=== PATIENT | male | born 1970 | race Caucasian/White ===

== ENCOUNTER → 2017-12-04 07:15 | Outpatient (CLI) | payer OTHER, MEDICAID, SELFPAY ==
[2017-12-04 09:04] LABS: Alanine Aminotransferase 24 IU/L (21-72); Albumin 4.6 g/dL (3.5-5.0); Albumin Globulin Ratio 1.6 (1.0-2.8); Alkaline Phosphatase 42 U/L (38-126); Aspartate Aminotransferase 23 IU/L (17-59); Blood Urea Nitrogen 16 mg/dL (9-20); Calcium 9.8 mg/dL (8.4-10.2); Carbon Dioxide 31 mmol/L (22-32); Chloride 100 mmol/L (98-107); Cholesterol 219 mg/dL (140-199); Estimated Glomerular Filt Rate > 60.0 mL/min (>60); Globulin 2.9 g/dL (1.7-4.1); Glucose 84 mg/dL (70-100); HDL Cholesterol 55 mg/dL (40-60); HEMOLYSIS < 15 (0-50); LDL Cholesterol Calculated 152 mg/dL (<100); Potassium 5.3 mmol/L (3.4-5.1); Sodium 143 mmol/L (137-145); Total Protein 7.5 g/dL (6.3-8.2); Triglycerides 60 mg/dL (35-150)
== END ==
PROVIDERS: PCP Family Medicine; Visit Provider Family Medicine
DX: Z00.00 Encounter for general adult medical examination without abnormal findings (principal)
CPT/HCPCS: 36415; 80053; 80061

== ENCOUNTER 2018-04-08 09:00 | Outpatient (RCR) | payer OTHER, MEDICAID, SELFPAY ==
--- NOTE | 2017-12-17 17:30 | PT.OIE ---
Current Diagnoses Low back pain (12/17/17) Past Medical History (Last Reviewed 12/10/17 @ 10:39 by Sima Becerra LPN) Foot pain (Chronic ~2014) Provider Visit Care Team Role Provider Type Jonathon Wasserman MD Attending Provider Physician Family Provider Primary Care Provider Specialty: Family Practice Address: [address] [place] [address] Email: [email or web address] Physical Therapy Initial Evaluation PT-OP-A Visit Information Start: 12/17/17 13:17 Freq: Status: Active Protocol: Document 12/17/17 13:21 EA (Rec: 12/17/17 13:40 EA [id number]) Out-Patient Physical Therapy Visit Information Visit Information Visit Type Initial Evaluation Visit Start Time 07:30 Visit Stop Time 08:00 Total Visit Minutes 30 Visit Number 1 Evaluation Information Evaluation Date 12/17/17 PT-OP-B Current Condition Start: 12/17/17 13:17 Freq: Status: Active Protocol: Document 12/17/17 13:21 EA (Rec: 12/17/17 13:40 EA [id number]) Current Condition History of Current Condition Onset Date 4 years ago Current Complaints Localized R low back and posterior neck aching pain. History of Current Condition Pt reports chronic low back pain for more than ten years and neck pain started ~ 3 months ago. Pt denies any low back and neck surgery or injury or other significant history. Pt reports his works requires sitting in the computer longer time with monitor position slightly angulated to right side; states does 3-4 times yoga, hiking, out walking; states does reading with two pillows. Pt denies abnormal sensation to both UE/LE's; denies los of function to both UE/LE's Prior Treatments and Tests Sciatic n. treatment to PT with good results Future Testing and Treatments Planned None identified. Treatment Goals Patient/Caregiver Goals Patient wants to get rid of neck and low back pain Prior Functional Status Baseline Function- ADL's Independent Baseline Function- Mobility Independent Baseline Function- Recreation/Hobbies Hiking, Yoga, out side walking with no back and neck symptoms Current Functional Impairments (Reported) Functional Limitations- ADL's Independent Functional Limitations- Mobility/Gait Slight difficulty with long distance hike due to minimal low back and neck pain PT-OP-C Subjective Start: 12/17/17 13:17 Freq: Status: Active Protocol: Document 12/17/17 13:21 EA (Rec: 12/17/17 13:40 EA [id number]) OP-PT Subjective Patient Comments Patient Comments Patient would like to eliminate right low back and posterior neck pain Patient Reported Progress Same Patient Questionnaires Oswestry Low Back Index Oswestry Score 11 Oswestry Impairment 1 to 19% Impaired (Score 1-19) Other Questionnaire Name and Score Neck disability index to fill up next visit OP-PT Pain Assessment Pain Assessment Grid Paper Pain Assessment Grid Completed Yes Location Right Lower Medial Back Pain Location Details 4 Scale Used Numeric (1 - 10) Description Aching Tightness With Movement Frequency Intermittent Pain Aggravating Factors Position Sitting Bending Lifting Pain Alleviating Factors Exercise Patient Stated Pain Goal 0 Home Pain Medication Use Pain Medications Used No Comments Pain Comments No acute distress; ambulate with near normal pelvic swing PT-OP-F Manual Assessment Start: 12/17/17 13:17 Freq: Status: Active Protocol: Document 12/17/17 13:21 EA (Rec: 12/17/17 13:40 EA [id number]) Manual Assessments Soft Tissue Assessment Soft Tissue Mobility Assessment Tigthness to both Posterior neck, SCM, Shoulder IR, protratctors, QL, paralumbars PT-OP-G Mobility & Gait Start: 12/17/17 13:17 Freq: Status: Active Protocol: Document 12/17/17 13:21 EA (Rec: 12/17/17 13:40 EA [id number]) OP Gait Assessment Gait Gait Assistance Required: Independent Comments Gait Comments Normal gait pattern PT-OP-J Posture/Palpation/Skin Start: 12/17/17 13:17 Freq: Status: Active Protocol: Document 12/17/17 13:21 EA (Rec: 12/17/17 13:40 EA [id number]) Posture Evaluation Position Standing Evaluation View Annt/Lat Head/C-Spine Posture Flexed Forward Head T-Spine Posture Neutral L-Spine Posture Flattened Shoulder Posture (L) Rounded (R) Rounded Scapula Posture (L) Protracted (R) Protracted Arm Posture (L) Internally Rotated (R) Internally Rotated Pelvis Posture Posterior Tilted Palpation Assessment Location One Palpation Findings Soft Tissue Tightness Tenderness Palpation Details Grade 1/4 tender over L1-L2 paraspinals, post neck muscles , SCM PT-OP-K Range of Motion Start: 12/17/17 13:17 Freq: Status: Active Protocol: Document 12/17/17 14:30 EA (Rec: 12/17/17 14:35 EA [id number]) Cervical Spine Range of Motion Cervical Spine Active Percentage Testing Position Sitting Flexion 80 Extension 70 Rotation Left 75 Rotation Right 75 Lateral Flexion Left 70 Lateral Flexion Right 70 ROM Limitations Soft Tissue Tightness Lumbar Spine Range of Motion Lumbar Spine Active Percentage Testing Position standing Flexion 100 Extension 100 Rotation Left 70 Rotation Right 80 Lateral Flexion Left 50 Lateral Flexion Right 48 ROM Limitations Soft Tissue Tightness Pain PT-OP-L Special Tests Start: 12/17/17 13:17 Freq: Status: Active Protocol: Document 12/17/17 13:21 EA (Rec: 12/17/17 13:40 EA [id number]) Special Tests Cervical Spine Special Tests Spurling's Test Test Results negative Foraminal Compression Test Results negative Lumbar Spine Special Tests Compression Test Results + sacral compression test Comments SL to right side Other- 1 Test Results + post quadrant - facets joints Comments trunk SF/Ext to left then rot to right Knee Special Tests Nelson's Test Test Results tight ITB PT-OP-M Strength Start: 12/17/17 13:17 Freq: Status: Active Protocol: Document 12/17/17 13:25 EA (Rec: 12/18/17 09:41 EA [id number]) Cervical Spine Strength Cervical Spine Manual Muscle Testing Flexion (C1-2) 5 Normal Extension 4+ Good+ Rotation Left 5 Normal Rotation Right 5 Normal Lateral Flexion Left (C3) 5 Normal Lateral Flexion Right (C3) 5 Normal Trunk Strength Trunk Manual Muscle Testing Testing Position supine/prone/SF Flexion 4+ Good+ Extension 4+ Good+ Rotation Left 4+ Good+ Rotation Right 4+ Good+ Lateral Flexion Left 4+ Good+ Lateral Flexion Right 4+ Good+ PT-OP-T Assessment and Plan Start: 12/17/17 13:17 Freq: Status: Active Protocol: Document 12/17/17 14:30 EA (Rec: 12/17/17 14:35 EA [id number]) Physical Therapy Assessment Rehab Potential Rehabilitation Potential Good Evaluation Complexity Number of Personal Factors/Comorbidities 0 Number of Body Systems Impaired 1-2 Clinical Presentation at Evaluation Evolving Impairments Impairments Activity Tolerance Pain Posture ROM Soft Tissue Mobility Goals Four Impairment Impaired soft tissue flexibility to both lumbar, LE 's and neck muscles Senior Asset Manager Goal (LTG) Patient will improve hamstrings, paralumbars, QL, posterior neck muscle to improved posture and prevent biomechanical alignment. LTG Duration 4 wks Three Impairment No HEP in place Alf Goal (LTG) Patient will learn, perform, comply with HEP safely LTG Duration 4 wks Two Impairment Impaired lifting mechanics and tolerance Alf Goal (LTG) Patient will perform floor to waist lifting with proper mechanics and able to tolerated 30 lbs lifting without increase in low back symptoms LTG Duration 4 wks One Impairment Oswetry low back pain disability index score of 11/ 50 Alf Goal (LTG) Patient will have Oswetry disability index score of 4/50 LTG Duration 4 wks Assessment Summary Assessment Pleasant 47 y/o male patient who is referred due to low back pain. Today patient presented lumbar facet joint dysfunction in closing direction with no neural involvement. Special tests reveals positive with posterior quadrant tests to facets joint, negative with foraminal compression. Tightness to both hamstring and QL and rotatores is evident. Due to bodily dysfunction, patient unable to perform tasks fully. In my professional opinion, patient is a good candidate to skilled PT to enhance functional mobility and positional tolerance. Physical Therapy Plan Frequency and Duration Frequency of Treatment 2x/Week Duration of Treatment 8 Plan of Care Start Date 12/17/17 Plan of Care End Date 02/11/18 Therapeutic Interventions Therapeutic Interventions Home Exercise Program Joint Mobilizations Manual Therapy Patient/Caregiver Education Self-Care/Home Management Soft Tissue Mobilization Therapeutic Exercises Modalities Cold Pack/Ice Massage Electric Stimulation Hot Packs Ultrasound Next Visit Focus/Plan Next Note Type Treatment Note
--- NOTE | 2017-12-17 17:30 | PT.OPPOC ---
Current Diagnoses Low back pain (12/17/17) Provider Visit Care Team Role Provider Type Jonathon Wasserman MD Attending Provider Physician Family Provider Primary Care Provider Specialty: Family Practice Address: [address] [place] [address], [facility] Email: [email or web address] Plan Of Care PT-OP-T Assessment and Plan Start: 12/17/17 13:17 Freq: Status: Active Protocol: Document 12/17/17 14:30 EA (Rec: 12/17/17 14:35 EA [id number]) Physical Therapy Assessment Rehab Potential Rehabilitation Potential Good Evaluation Complexity Number of Personal Factors/Comorbidities 0 Number of Body Systems Impaired 1-2 Clinical Presentation at Evaluation Evolving Impairments Impairments Activity Tolerance Pain Posture ROM Soft Tissue Mobility Goals Four Impairment Impaired soft tissue flexibility to both lumbar, LE 's and neck muscles Group Home Goal (LTG) Patient will improve hamstrings, paralumbars, QL, posterior neck muscle to improved posture and prevent biomechanical alignment. LTG Duration 4 wks Three Impairment No HEP in place Group Home Goal (LTG) Patient will learn, perform, comply with HEP safely LTG Duration 4 wks Two Impairment Impaired lifting mechanics and tolerance Adult Literacy Instructor Goal (LTG) Patient will perform floor to waist lifting with proper mechanics and able to tolerated 30 lbs lifting without increase in low back symptoms LTG Duration 4 wks One Impairment Oswestry low back pain disability index score of 11/ 50 Adult Literacy Instructor Goal (LTG) Patient will have Oswestry disability index score of 4/50 LTG Duration 4 wks Assessment Summary Assessment Pleasant 47 y/o male patient who is referred due to low back pain. Today patient presented lumbar facet joint dysfunction in closing direction with no neural involvement. Special tests reveals positive with posterior quadrant tests to facets joint, negative with foraminal compression. Tightness to both hamstring and QL and rotatores is evident. Due to bodily dysfunction, patient unable to perform tasks fully. In my professional opinion, patient is a good candidate to skilled PT to enhance functional mobility and positional tolerance. Physical Therapy Plan Frequency and Duration Frequency of Treatment 2x/Week Duration of Treatment 8 Plan of Care Start Date 12/17/17 Plan of Care End Date 02/11/18 Therapeutic Interventions Therapeutic Interventions Home Exercise Program Joint Mobilizations Manual Therapy Patient/Caregiver Education Self-Care/Home Management Soft Tissue Mobilization Therapeutic Exercises Modalities Cold Pack/Ice Massage Electric Stimulation Hot Packs Ultrasound Next Visit Focus/Plan Next Note Type Treatment Note Plan of Care Dates Plan of Care Start Date 12/17/17 Plan of Care End Date 02/11/18 Please Sign and Return: I have reviewed this Plan of Care and certify that the skilled therapy services above are required to meet the patient?s needs. Physician Signature Date Printed Name and Credentials Clinical Instructor Signature Printed Name and Credentials
--- NOTE | 2018-01-21 15:30 | PT.OTN ---
Current Diagnoses Low back pain (01/21/18) Physical Therapy Treatment Note PT-OP-A Visit Information Start: 12/17/17 13:17 Freq: Status: Active Protocol: Document 01/21/18 14:35 EA (Rec: 01/21/18 15:30 EA [id number]) Out-Patient Physical Therapy Visit Information Visit Information Visit Type Treatment Note Visit Start Time 13:45 Visit Stop Time 14:40 Total Visit Minutes 55 Visit Number 2 PT-OP-B Current Condition Start: 12/17/17 13:17 Freq: Status: Active Protocol: Document 12/17/17 13:21 EA (Rec: 12/17/17 13:40 EA [id number]) Current Condition History of Current Condition Onset Date 4 years ago Current Complaints Localized R low back and posterior neck aching pain. History of Current Condition Pt reports chronic low back pain for more than ten years and neck pain started ~ 3 months ago. Pt denies any low back and neck surgery or injury or other significant history. Pt reports his works requires sitting in the computer longer time with monitor position slightly angulated to right side; states does 3-4 times yoga, hiking, out walking; states does reading with two pillows. Pt denies abnormal sensation to both UE/LE's; denies los of function to both UE/LE's Prior Treatments and Tests Sciatic n. treatment to PT with good results Future Testing and Treatments Planned None identified. Treatment Goals Patient/Caregiver Goals Patient wants to get rid of neck and low back pain Prior Functional Status Baseline Function- ADL's Independent Baseline Function- Mobility Independent Baseline Function- Recreation/Hobbies Hiking, Yoga, out side walking with no back and neck symptoms Current Functional Impairments (Reported) Functional Limitations- ADL's Independent Functional Limitations- Mobility/Gait Slight difficulty with long distance hike due to minimal low back and neck pain PT-OP-C Subjective Start: 12/17/17 13:17 Freq: Status: Active Protocol: Document 01/21/18 14:35 EA (Rec: 01/21/18 15:30 EA [id number]) OP-PT Subjective Patient Comments Patient Comments Pt reports pain to low back at the left side and left side upper neck still the same. Patient Reported Progress Same PT-OP-F Manual Assessment Start: 12/17/17 13:17 Freq: Status: Active Protocol: Document 12/17/17 13:21 EA (Rec: 12/17/17 13:40 EA [id number]) Manual Assessments Soft Tissue Assessment Soft Tissue Mobility Assessment Tigthness to both Posterior neck, SCM, Shoulder IR, protratctors, QL, paralumbars PT-OP-G Mobility & Gait Start: 12/17/17 13:17 Freq: Status: Active Protocol: Document 12/17/17 13:21 EA (Rec: 12/17/17 13:40 EA [id number]) OP Gait Assessment Gait Gait Assistance Required: Independent Comments Gait Comments Normal gait pattern PT-OP-J Posture/Palpation/Skin Start: 12/17/17 13:17 Freq: Status: Active Protocol: Document 12/17/17 13:21 EA (Rec: 12/17/17 13:40 EA [id number]) Posture Evaluation Position Standing Evaluation View Annt/Lat Head/C-Spine Posture Flexed Forward Head T-Spine Posture Neutral L-Spine Posture Flattened Shoulder Posture (L) Rounded (R) Rounded Scapula Posture (L) Protracted (R) Protracted Arm Posture (L) Internally Rotated (R) Internally Rotated Pelvis Posture Posterior Tilted Palpation Assessment Location One Palpation Findings Soft Tissue Tightness Tenderness Palpation Details Grade 1/4 tender over L1-L2 paraspinals, post neck muscles , SCM PT-OP-K Range of Motion Start: 12/17/17 13:17 Freq: Status: Active Protocol: Document 12/17/17 14:30 EA (Rec: 12/17/17 14:35 EA [id number]) Cervical Spine Range of Motion Cervical Spine Active Percentage Testing Position Sitting Flexion 80 Extension 70 Rotation Left 75 Rotation Right 75 Lateral Flexion Left 70 Lateral Flexion Right 70 ROM Limitations Soft Tissue Tightness Lumbar Spine Range of Motion Lumbar Spine Active Percentage Testing Position standing Flexion 100 Extension 100 Rotation Left 70 Rotation Right 80 Lateral Flexion Left 50 Lateral Flexion Right 48 ROM Limitations Soft Tissue Tightness Pain PT-OP-L Special Tests Start: 12/17/17 13:17 Freq: Status: Active Protocol: Document 12/17/17 13:21 EA (Rec: 12/17/17 13:40 EA [id number]) Special Tests Cervical Spine Special Tests Spurling's Test Test Results negative Foraminal Compression Test Results negative Lumbar Spine Special Tests Compression Test Results + sacral compression test Comments SL to right side Other- 1 Test Results + post quadrant - facets joints Comments trunk SF/Ext to left then rot to right Knee Special Tests Nelson's Test Test Results tight ITB PT-OP-M Strength Start: 12/17/17 13:17 Freq: Status: Active Protocol: Document 12/17/17 13:25 EA (Rec: 12/18/17 09:41 EA [id number]) Cervical Spine Strength Cervical Spine Manual Muscle Testing Flexion (C1-2) 5 Normal Extension 4+ Good+ Rotation Left 5 Normal Rotation Right 5 Normal Lateral Flexion Left (C3) 5 Normal Lateral Flexion Right (C3) 5 Normal Trunk Strength Trunk Manual Muscle Testing Testing Position supine/prone/SF Flexion 4+ Good+ Extension 4+ Good+ Rotation Left 4+ Good+ Rotation Right 4+ Good+ Lateral Flexion Left 4+ Good+ Lateral Flexion Right 4+ Good+ PT-OP-Q Treatments Start: 12/17/17 13:17 Freq: Status: Active Protocol: Document 01/21/18 14:35 EA (Rec: 01/21/18 15:30 EA [id number]) Cardio Equipment Recumbent Stepper (Sci-Fit) Duration (Minutes) 5 Resistance 3 Seat Position 13 Other wram up Therapeutic Exercises Prone Exercises 3 Prone Exercise Name Thread and needle Side bilateral Reps/Minutes x 12 reps 2 Prone Exercise Name Trunk extension: mat Side bilateral Reps/Minutes x 12 reps 1 Prone Exercise Name Child pose- then toward lateral sides Side bilateral Reps/Minutes x 30 secs each x 2 Standing Exercises 1 Standing Exercise Name Lats, QL, stretch Side bilateral Equipment Used stairs 2 bars post Reps/Minutes x 30sces hold x 2 Manual Therapy Treatment Soft Tissue Mobilization 1 Body Location Left paralumbars, QL, and upper right cervicals Mobilization Type Myofascial Release Strumming Sustained Pressure Trigger Point Release Intensity/Depth Moderate Body Position Prone Comments Pillow under stomach PT-OP-R Modalities Start: 12/17/17 13:17 Freq: Status: Active Protocol: Document 01/21/18 14:35 EA (Rec: 01/21/18 15:30 EA [id number]) Electric Stimulation Electric Stimulation Interferential Current (IFC) Body Location left lower back Duration (Minutes) 15 Combined With Heat/Cold Hot Pack Comments Prone position: while performing left upper cervical STM. Hot Pack/Cold Pack Treatment Hot Pack Location cervical Patient Position Prone Treatment Duration (minutes) 10 Patient Tolerance Good PT-OP-T Assessment and Plan Start: 12/17/17 13:17 Freq: Status: Active Protocol: Document 01/21/18 14:35 EA (Rec: 01/21/18 15:30 EA [id number]) Physical Therapy Assessment Assessment Summary Assessment Tolerated treatment well with decreased symptoms after session. Cont with current plan. Physical Therapy Plan Next Visit Focus/Plan Next Note Type Treatment Note Next Visit Plan Cont. with current plan
--- NOTE | 2018-01-23 08:24 | PT.OTN ---
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 History of Current Condition Pt reports chronic low back pain for more than ten years and neck pain started ~ 3 months ago. Pt denies any low back and neck surgery or injury or other significant history. Pt reports his works requires sitting in the computer longer time with monitor position slightly angulated to right side; states does 3-4 times yoga, hiking, out walking; states does reading with two pillows. Pt denies abnormal sensation to both UE/LE's; denies los of function to both UE/LE's Prior Treatments and Tests Sciatic n. treatment to PT with good results Future Testing and Treatments Planned None identified. Treatment Goals Patient/Caregiver Goals Patient wants to get rid of neck and low back pain Prior Functional Status Baseline Function- ADL's Independent Baseline Function- Mobility Independent Baseline Function- Recreation/Hobbies Hiking, Yoga, out side walking with no back and neck symptoms Current Functional Impairments (Reported) Functional Limitations- ADL's Independent Functional Limitations- Mobility/Gait Slight difficulty with long distance hike due to minimal low back and neck pain PT-OP-C Subjective Start: 12/17/17 13:17 Freq: Status: Active Protocol: Document 01/23/18 08:13 SA (Rec: 01/23/18 08:21 SA [email or web address]) OP-PT Subjective Patient Comments Patient Comments R interscap and cervical area with increased pain today. Low back pain eased up a little. Patient Reported Progress Improving PT-OP-F Manual Assessment Start: 12/17/17 13:17 Freq: Status: Active Protocol: Document 12/17/17 13:21 EA (Rec: 12/17/17 13:40 EA [id number]) Manual Assessments Soft Tissue Assessment Soft Tissue Mobility Assessment Tigthness to both Posterior neck, SCM, Shoulder IR, protratctors, QL, paralumbars PT-OP-G Mobility & Gait Start: 12/17/17 13:17 Freq: Status: Active Protocol: Document 12/17/17 13:21 EA (Rec: 12/17/17 13:40 EA [id number]) OP Gait Assessment Gait Gait Assistance Required: Independent Comments Gait Comments Normal gait pattern PT-OP-J Posture/Palpation/Skin Start: 12/17/17 13:17 Freq: Status: Active Protocol: Document 12/17/17 13:21 EA (Rec: 12/17/17 13:40 EA [id number]) Posture Evaluation Position Standing Evaluation View Annt/Lat Head/C-Spine Posture Flexed Forward Head T-Spine Posture Neutral L-Spine Posture Flattened Shoulder Posture (L) Rounded (R) Rounded Scapula Posture (L) Protracted (R) Protracted Arm Posture (L) Internally Rotated (R) Internally Rotated Pelvis Posture Posterior Tilted Palpation Assessment Location One Palpation Findings Soft Tissue Tightness Tenderness Palpation Details Grade 1/4 tender over L1-L2 paraspinals, post neck muscles , SCM PT-OP-K Range of Motion Start: 12/17/17 13:17 Freq: Status: Active Protocol: Document 12/17/17 14:30 EA (Rec: 12/17/17 14:35 EA [id number]) Cervical Spine Range of Motion Cervical Spine Active Percentage Testing Position Sitting Flexion 80 Extension 70 Rotation Left 75 Rotation Right 75 Lateral Flexion Left 70 Lateral Flexion Right 70 ROM Limitations Soft Tissue Tightness Lumbar Spine Range of Motion Lumbar Spine Active Percentage Testing Position standing Flexion 100 Extension 100 Rotation Left 70 Rotation Right 80 Lateral Flexion Left 50 Lateral Flexion Right 48 ROM Limitations Soft Tissue Tightness Pain PT-OP-L Special Tests Start: 12/17/17 13:17 Freq: Status: Active Protocol: Document 12/17/17 13:21 EA (Rec: 12/17/17 13:40 EA [id number]) Special Tests Cervical Spine Special Tests Spurling's Test Test Results negative Foraminal Compression Test Results negative Lumbar Spine Special Tests Compression Test Results + sacral compression test Comments SL to right side Other- 1 Test Results + post quadrant - facets joints Comments trunk SF/Ext to left then rot to right Knee Special Tests Nelson's Test Test Results tight ITB PT-OP-M Strength Start: 12/17/17 13:17 Freq: Status: Active Protocol: Document 12/17/17 13:25 EA (Rec: 12/18/17 09:41 EA [id number]) Cervical Spine Strength Cervical Spine Manual Muscle Testing Flexion (C1-2) 5 Normal Extension 4+ Good+ Rotation Left 5 Normal Rotation Right 5 Normal Lateral Flexion Left (C3) 5 Normal Lateral Flexion Right (C3) 5 Normal Trunk Strength Trunk Manual Muscle Testing Testing Position supine/prone/SF Flexion 4+ Good+ Extension 4+ Good+ Rotation Left 4+ Good+ Rotation Right 4+ Good+ Lateral Flexion Left 4+ Good+ Lateral Flexion Right 4+ Good+ PT-OP-Q Treatments Start: 12/17/17 13:17 Freq: Status: Active Protocol: Document 01/23/18 08:13 SA (Rec: 01/23/18 08:21 SA [email or web address]) Therapeutic Exercises Prone Exercises 1 Prone Exercise Name Child pose- then toward lateral sides Side bilateral Reps/Minutes x 30 secs each x 2 Sitting Exercises Seated UT/Scalenes stretching Reps/Minutes 30 x 2 each Standing Exercises Wall Postural stretch Side bilateral Reps/Minutes 30 x 2 1 Standing Exercise Name Lats, QL, stretch Side bilateral Equipment Used stairs 2 bars post Reps/Minutes x 30sces hold x 2 Manual Therapy Treatment Soft Tissue Mobilization 1 Body Location Left paralumbars, QL, and upper right cervicals Mobilization Type Myofascial Release Strumming Sustained Pressure Trigger Point Release Intensity/Depth Moderate Body Position Prone Comments Pillow under stomach PT-OP-R Modalities Start: 12/17/17 13:17 Freq: Status: Active Protocol: Document 01/23/18 08:13 SA (Rec: 01/23/18 08:21 SA [email or web address]) Electric Stimulation Electric Stimulation Interferential Current (IFC) Body Location R interscap/ thoracic Duration (Minutes) 15 Combined With Heat/Cold Hot Pack Comments Prone PT-OP-T Assessment and Plan Start: 12/17/17 13:17 Freq: Status: Active Protocol: Document 01/23/18 08:13 SA (Rec: 01/23/18 08:21 SA [email or web address]) Physical Therapy Assessment Assessment Summary Assessment Provided pt with work station set up as he reports having increased cervical and low back pain with increased time spent at computer, also added postural wall stretch and UT stretching to HEP. Physical Therapy Plan Next Visit Focus/Plan Next Note Type Treatment Note Next Visit Plan Progress with STM/E-stim as pt reports relief with this, continue as per plan.
--- NOTE | 2018-01-27 08:31 | PT.OTN ---
Current Diagnoses Low back pain (01/27/18) Physical Therapy Treatment Note PT-OP-A Visit Information Start: 12/17/17 13:17 Freq: Status: Active Protocol: Document 01/27/18 08:24 SA (Rec: 01/27/18 08:31 SA [email or web address]) Out-Patient Physical Therapy Visit Information Visit Information Visit Type Treatment Note Visit Start Time 07:32 Visit Stop Time 08:22 Total Visit Minutes 50 Visit Number 4 Number of FIELD AGRONOMIST Visits 2 PT-OP-B Current Condition Start: 12/17/17 13:17 Freq: Status: Active Protocol: Document 12/17/17 13:21 EA (Rec: 12/17/17 13:40 EA [id number]) Current Condition History of Current Condition Onset Date 4 years ago Current Complaints Localized R low back and posterior neck aching pain. History of Current Condition Pt reports chronic low back pain for more than ten years and neck pain started ~ 3 months ago. Pt denies any low back and neck surgery or injury or other significant history. Pt reports his works requires sitting in the computer longer time with monitor position slightly angulated to right side; states does 3-4 times yoga, hiking, out walking; states does reading with two pillows. Pt denies abnormal sensation to both UE/LE's; denies los of function to both UE/LE's Prior Treatments and Tests Sciatic n. treatment to PT with good results Future Testing and Treatments Planned None identified. Treatment Goals Patient/Caregiver Goals Patient wants to get rid of neck and low back pain Prior Functional Status Baseline Function- ADL's Independent Baseline Function- Mobility Independent Baseline Function- Recreation/Hobbies Hiking, Yoga, out side walking with no back and neck symptoms Current Functional Impairments (Reported) Functional Limitations- ADL's Independent Functional Limitations- Mobility/Gait Slight difficulty with long distance hike due to minimal low back and neck pain PT-OP-C Subjective Start: 12/17/17 13:17 Freq: Status: Active Protocol: Document 01/27/18 08:24 SA (Rec: 01/27/18 08:31 SA [email or web address]) OP-PT Subjective Patient Comments Patient Comments Had some longer lasting relief after last visit, thoracic/ cervial area. Did not do my UT and wall stretches consistently though. Low back is still there but not as significant. PT-OP-F Manual Assessment Start: 12/17/17 13:17 Freq: Status: Active Protocol: Document 12/17/17 13:21 EA (Rec: 12/17/17 13:40 EA [id number]) Manual Assessments Soft Tissue Assessment Soft Tissue Mobility Assessment Tigthness to both Posterior neck, SCM, Shoulder IR, protratctors, QL, paralumbars PT-OP-G Mobility & Gait Start: 12/17/17 13:17 Freq: Status: Active Protocol: Document 12/17/17 13:21 EA (Rec: 12/17/17 13:40 EA [id number]) OP Gait Assessment Gait Gait Assistance Required: Independent Comments Gait Comments Normal gait pattern PT-OP-J Posture/Palpation/Skin Start: 12/17/17 13:17 Freq: Status: Active Protocol: Document 12/17/17 13:21 EA (Rec: 12/17/17 13:40 EA [id number]) Posture Evaluation Position Standing Evaluation View Annt/Lat Head/C-Spine Posture Flexed Forward Head T-Spine Posture Neutral L-Spine Posture Flattened Shoulder Posture (L) Rounded (R) Rounded Scapula Posture (L) Protracted (R) Protracted Arm Posture (L) Internally Rotated (R) Internally Rotated Pelvis Posture Posterior Tilted Palpation Assessment Location One Palpation Findings Soft Tissue Tightness Tenderness Palpation Details Grade 1/4 tender over L1-L2 paraspinals, post neck muscles , SCM PT-OP-K Range of Motion Start: 12/17/17 13:17 Freq: Status: Active Protocol: Document 12/17/17 14:30 EA (Rec: 12/17/17 14:35 EA [id number]) Cervical Spine Range of Motion Cervical Spine Active Percentage Testing Position Sitting Flexion 80 Extension 70 Rotation Left 75 Rotation Right 75 Lateral Flexion Left 70 Lateral Flexion Right 70 ROM Limitations Soft Tissue Tightness Lumbar Spine Range of Motion Lumbar Spine Active Percentage Testing Position standing Flexion 100 Extension 100 Rotation Left 70 Rotation Right 80 Lateral Flexion Left 50 Lateral Flexion Right 48 ROM Limitations Soft Tissue Tightness Pain PT-OP-L Special Tests Start: 12/17/17 13:17 Freq: Status: Active Protocol: Document 12/17/17 13:21 EA (Rec: 12/17/17 13:40 EA [id number]) Special Tests Cervical Spine Special Tests Spurling's Test Test Results negative Foraminal Compression Test Results negative Lumbar Spine Special Tests Compression Test Results + sacral compression test Comments SL to right side Other- 1 Test Results + post quadrant - facets joints Comments trunk SF/Ext to left then rot to right Knee Special Tests Nelson's Test Test Results tight ITB PT-OP-M Strength Start: 12/17/17 13:17 Freq: Status: Active Protocol: Document 12/17/17 13:25 EA (Rec: 12/18/17 09:41 EA [id number]) Cervical Spine Strength Cervical Spine Manual Muscle Testing Flexion (C1-2) 5 Normal Extension 4+ Good+ Rotation Left 5 Normal Rotation Right 5 Normal Lateral Flexion Left (C3) 5 Normal Lateral Flexion Right (C3) 5 Normal Trunk Strength Trunk Manual Muscle Testing Testing Position supine/prone/SF Flexion 4+ Good+ Extension 4+ Good+ Rotation Left 4+ Good+ Rotation Right 4+ Good+ Lateral Flexion Left 4+ Good+ Lateral Flexion Right 4+ Good+ PT-OP-Q Treatments Start: 12/17/17 13:17 Freq: Status: Active Protocol: Document 01/27/18 08:24 SA (Rec: 01/27/18 08:31 SA [email or web address]) Cardio Equipment Recumbent Stepper (Sci-Fit) Duration (Minutes) 6 Resistance 3.3 Seat Position 13 Other warm up Therapeutic Exercises Prone Exercises 3 Prone Exercise Name Thread and needle Side bilateral Reps/Minutes x 12 reps 2 Prone Exercise Name Trunk extension: mat Side bilateral Reps/Minutes 10x 1 Prone Exercise Name Child pose- then toward lateral sides Side bilateral Reps/Minutes x 30 secs each x 2 Sitting Exercises Seated UT/Scalenes stretching Reps/Minutes 30 x 2 each Standing Exercises Wall Postural stretch Side bilateral Reps/Minutes 30 x 2 Manual Therapy Treatment Soft Tissue Mobilization 1 Body Location Left paralumbars, QL, and upper right cervicals Mobilization Type Myofascial Release Strumming Sustained Pressure Trigger Point Release Intensity/Depth Moderate Body Position Prone Comments Pillow under stomach PT-OP-R Modalities Start: 12/17/17 13:17 Freq: Status: Active Protocol: Document 01/27/18 08:24 SA (Rec: 01/27/18 08:31 SA [email or web address]) Electric Stimulation Electric Stimulation Interferential Current (IFC) Body Location R interscap/ thoracic Duration (Minutes) 15 Combined With Heat/Cold Hot Pack Comments Prone PT-OP-T Assessment and Plan Start: 12/17/17 13:17 Freq: Status: Active Protocol: Document 01/27/18 08:24 SA (Rec: 01/27/18 08:31 SA [email or web address]) Physical Therapy Assessment Progress Towards Goals Progress Towards Goals Progressing Toward Goals Progress Comments Pt has good body awareness. Assessment Summary Assessment Initiated core stabilization program with patient to progress as part of HEP. Physical Therapy Plan Next Visit Focus/Plan Next Note Type Treatment Note Next Visit Plan Continue with STM/E-stim and stretching and core strengthening, assess response to HEP.
--- NOTE | 2018-01-29 11:15 | PT.OTN ---
Current Diagnoses Low back pain (01/29/18) Physical Therapy Treatment Note PT-OP-A Visit Information Start: 12/17/17 13:17 Freq: Status: Active Protocol: Document 01/29/18 10:30 DCW (Rec: 01/29/18 11:15 DCW [id number]) Out-Patient Physical Therapy Visit Information Visit Information Visit Type Treatment Note Visit Start Time 10:30 Visit Stop Time 11:25 Total Visit Minutes 55 Visit Number 5 Number of MANAGER GAMING Visits 0 Evaluation Information Evaluation Date 12/17/17 PT-OP-B Current Condition Start: 12/17/17 13:17 Freq: Status: Active Protocol: Document 12/17/17 13:21 EA (Rec: 12/17/17 13:40 EA [id number]) Current Condition History of Current Condition Onset Date 4 years ago Current Complaints Localized R low back and posterior neck aching pain. History of Current Condition Pt reports chronic low back pain for more than ten years and neck pain started ~ 3 months ago. Pt denies any low back and neck surgery or injury or other significant history. Pt reports his works requires sitting in the computer longer time with monitor position slightly angulated to right side; states does 3-4 times yoga, hiking, out walking; states does reading with two pillows. Pt denies abnormal sensation to both UE/LE's; denies los of function to both UE/LE's Prior Treatments and Tests Sciatic n. treatment to PT with good results Future Testing and Treatments Planned None identified. Treatment Goals Patient/Caregiver Goals Patient wants to get rid of neck and low back pain Prior Functional Status Baseline Function- ADL's Independent Baseline Function- Mobility Independent Baseline Function- Recreation/Hobbies Hiking, Yoga, out side walking with no back and neck symptoms Current Functional Impairments (Reported) Functional Limitations- ADL's Independent Functional Limitations- Mobility/Gait Slight difficulty with long distance hike due to minimal low back and neck pain PT-OP-C Subjective Start: 12/17/17 13:17 Freq: Status: Active Protocol: Document 01/29/18 10:30 DCW (Rec: 01/29/18 11:15 DCW [id number]) OP-PT Subjective Patient Comments Patient Comments Pt notes that he feels his neck/thoracic area has been more problematic than his low back recently. PT-OP-F Manual Assessment Start: 12/17/17 13:17 Freq: Status: Active Protocol: Document 12/17/17 13:21 EA (Rec: 12/17/17 13:40 EA [id number]) Manual Assessments Soft Tissue Assessment Soft Tissue Mobility Assessment Tigthness to both Posterior neck, SCM, Shoulder IR, protratctors, QL, paralumbars PT-OP-G Mobility & Gait Start: 12/17/17 13:17 Freq: Status: Active Protocol: Document 12/17/17 13:21 EA (Rec: 12/17/17 13:40 EA [id number]) OP Gait Assessment Gait Gait Assistance Required: Independent Comments Gait Comments Normal gait pattern PT-OP-J Posture/Palpation/Skin Start: 12/17/17 13:17 Freq: Status: Active Protocol: Document 12/17/17 13:21 EA (Rec: 12/17/17 13:40 EA [id number]) Posture Evaluation Position Standing Evaluation View Annt/Lat Head/C-Spine Posture Flexed Forward Head T-Spine Posture Neutral L-Spine Posture Flattened Shoulder Posture (L) Rounded (R) Rounded Scapula Posture (L) Protracted (R) Protracted Arm Posture (L) Internally Rotated (R) Internally Rotated Pelvis Posture Posterior Tilted Palpation Assessment Location One Palpation Findings Soft Tissue Tightness Tenderness Palpation Details Grade 1/4 tender over L1-L2 paraspinals, post neck muscles , SCM PT-OP-K Range of Motion Start: 12/17/17 13:17 Freq: Status: Active Protocol: Document 12/17/17 14:30 EA (Rec: 12/17/17 14:35 EA [id number]) Cervical Spine Range of Motion Cervical Spine Active Percentage Testing Position Sitting Flexion 80 Extension 70 Rotation Left 75 Rotation Right 75 Lateral Flexion Left 70 Lateral Flexion Right 70 ROM Limitations Soft Tissue Tightness Lumbar Spine Range of Motion Lumbar Spine Active Percentage Testing Position standing Flexion 100 Extension 100 Rotation Left 70 Rotation Right 80 Lateral Flexion Left 50 Lateral Flexion Right 48 ROM Limitations Soft Tissue Tightness Pain PT-OP-L Special Tests Start: 12/17/17 13:17 Freq: Status: Active Protocol: Document 12/17/17 13:21 EA (Rec: 12/17/17 13:40 EA [id number]) Special Tests Cervical Spine Special Tests Spurling's Test Test Results negative Foraminal Compression Test Results negative Lumbar Spine Special Tests Compression Test Results + sacral compression test Comments SL to right side Other- 1 Test Results + post quadrant - facets joints Comments trunk SF/Ext to left then rot to right Knee Special Tests Nelson's Test Test Results tight ITB PT-OP-M Strength Start: 12/17/17 13:17 Freq: Status: Active Protocol: Document 12/17/17 13:25 EA (Rec: 12/18/17 09:41 EA [id number]) Cervical Spine Strength Cervical Spine Manual Muscle Testing Flexion (C1-2) 5 Normal Extension 4+ Good+ Rotation Left 5 Normal Rotation Right 5 Normal Lateral Flexion Left (C3) 5 Normal Lateral Flexion Right (C3) 5 Normal Trunk Strength Trunk Manual Muscle Testing Testing Position supine/prone/SF Flexion 4+ Good+ Extension 4+ Good+ Rotation Left 4+ Good+ Rotation Right 4+ Good+ Lateral Flexion Left 4+ Good+ Lateral Flexion Right 4+ Good+ PT-OP-Q Treatments Start: 12/17/17 13:17 Freq: Status: Active Protocol: Document 01/29/18 10:30 DCW (Rec: 01/29/18 11:15 DCW [id number]) Cardio Equipment Recumbent Stepper (Sci-Fit) Duration (Minutes) 6 Resistance 4 Seat Position 12 Therapeutic Exercises Sitting Exercises Seated UT/Scalenes stretching Reps/Minutes 30 x 2 each Standing Exercises Doorway Pec Stretch Standing Exercise Name Pec Stretch Equipment Used doorway Manual Therapy Treatment Soft Tissue Mobilization 1 Body Location Left paralumbars, QL, and upper right cervicals Mobilization Type Myofascial Release Strumming Sustained Pressure Trigger Point Release Intensity/Depth Moderate Body Position Prone/Supine Comments Pillow under stomach Manual Traction Cervical Body Position Supine PT-OP-R Modalities Start: 12/17/17 13:17 Freq: Status: Active Protocol: Document 01/29/18 10:30 DCW (Rec: 01/29/18 11:15 DCW [id number]) Electric Stimulation Electric Stimulation Interferential Current (IFC) Body Location R interscap/ thoracic Duration (Minutes) 15 Combined With Heat/Cold Hot Pack Comments Prone PT-OP-T Assessment and Plan Start: 12/17/17 13:17 Freq: Status: Active Protocol: Document 01/29/18 10:30 DCW (Rec: 01/29/18 11:15 DCW [id number]) Physical Therapy Assessment Impairments Impairments Activity Tolerance Pain Posture ROM Soft Tissue Mobility Goals Four Impairment Impaired soft tissue flexibility to both lumbar, LE 's and neck muscles Detailer Goal (LTG) Patient will improve hamstrings, paralumbars, QL, posterior neck muscle to improved posture and prevent biomechanical alignment. LTG Duration 4 wks Three Impairment No HEP in place Long-Term Goal (LTG) Patient will learn, perform, comply with HEP safely LTG Duration 4 wks Two Impairment Impaired lifting mechanics and tolerance Detailer Goal (LTG) Patient will perform floor to waist lifting with proper mechanics and able to tolerated 30 lbs lifting without increase in low back symptoms LTG Duration 4 wks One Impairment Oswetry low back pain disability index score of 11/ 50 Long-Term Goal (LTG) Patient will have Oswetry disability index score of 4/50 LTG Duration 4 wks Assessment Summary Assessment Pt tolerated increased cervical manual therapy well, c/o tightness with end-range lateral flexion. Physical Therapy Plan Frequency and Duration Frequency of Treatment 2x/Week Duration of Treatment 8 Plan of Care Start Date 12/17/17 Plan of Care End Date 02/11/18 Therapeutic Interventions Therapeutic Interventions Home Exercise Program Joint Mobilizations Manual Therapy Patient/Caregiver Education Self-Care/Home Management Soft Tissue Mobilization Therapeutic Exercises Modalities Cold Pack/Ice Massage Electric Stimulation Hot Packs Ultrasound Next Visit Focus/Plan Next Note Type Treatment Note Next Visit Plan Continue with STM/E-stim and stetching and core strengthening, assess response to HEP.
--- NOTE | 2018-02-03 16:50 | PT.OTN ---
Current Diagnoses Low back pain (02/03/18) Physical Therapy Treatment Note PT-OP-A Visit Information Start: 12/17/17 13:17 Freq: Status: Active Protocol: Document 02/03/18 16:36 EA (Rec: 02/03/18 16:45 EA [id number]) Out-Patient Physical Therapy Visit Information Visit Information Visit Type Treatment Note Visit Start Time 16:00 Visit Stop Time 16:55 Total Visit Minutes 55 Visit Number 6 Number of HEMATOLOGIST ONCOLOGIST Visits 0 PT-OP-B Current Condition Start: 12/17/17 13:17 Freq: Status: Active Protocol: Document 12/17/17 13:21 EA (Rec: 12/17/17 13:40 EA [id number]) Current Condition History of Current Condition Onset Date 4 years ago Current Complaints Localized R low back and posterior neck aching pain. History of Current Condition Pt reports chronic low back pain for more than ten years and neck pain started ~ 3 months ago. Pt denies any low back and neck surgery or injury or other significant history. Pt reports his works requires sitting in the computer longer time with monitor position slightly angulated to right side; states does 3-4 times yoga, hiking, out walking; states does reading with two pillows. Pt denies abnormal sensation to both UE/LE's; denies los of function to both UE/LE's Prior Treatments and Tests Sciatic n. treatment to PT with good results Future Testing and Treatments Planned None identified. Treatment Goals Patient/Caregiver Goals Patient wants to get rid of neck and low back pain Prior Functional Status Baseline Function- ADL's Independent Baseline Function- Mobility Independent Baseline Function- Recreation/Hobbies Hiking, Yoga, out side walking with no back and neck symptoms Current Functional Impairments (Reported) Functional Limitations- ADL's Independent Functional Limitations- Mobility/Gait Slight difficulty with long distance hike due to minimal low back and neck pain PT-OP-C Subjective Start: 12/17/17 13:17 Freq: Status: Active Protocol: Document 02/03/18 16:36 EA (Rec: 02/03/18 16:45 EA [id number]) OP-PT Subjective Patient Comments Patient Comments Pt reports right neck base is his main concern at this time; states left low back still hurts but not all the time. Patient Reported Progress Improving PT-OP-F Manual Assessment Start: 12/17/17 13:17 Freq: Status: Active Protocol: Document 12/17/17 13:21 EA (Rec: 12/17/17 13:40 EA [id number]) Manual Assessments Soft Tissue Assessment Soft Tissue Mobility Assessment Tigthness to both Posterior neck, SCM, Shoulder IR, protratctors, QL, paralumbars PT-OP-G Mobility & Gait Start: 12/17/17 13:17 Freq: Status: Active Protocol: Document 12/17/17 13:21 EA (Rec: 12/17/17 13:40 EA [id number]) OP Gait Assessment Gait Gait Assistance Required: Independent Comments Gait Comments Normal gait pattern PT-OP-J Posture/Palpation/Skin Start: 12/17/17 13:17 Freq: Status: Active Protocol: Document 12/17/17 13:21 EA (Rec: 12/17/17 13:40 EA [id number]) Posture Evaluation Position Standing Evaluation View Annt/Lat Head/C-Spine Posture Flexed Forward Head T-Spine Posture Neutral L-Spine Posture Flattened Shoulder Posture (L) Rounded (R) Rounded Scapula Posture (L) Protracted (R) Protracted Arm Posture (L) Internally Rotated (R) Internally Rotated Pelvis Posture Posterior Tilted Palpation Assessment Location One Palpation Findings Soft Tissue Tightness Tenderness Palpation Details Grade 1/4 tender over L1-L2 paraspinals, post neck muscles , SCM PT-OP-K Range of Motion Start: 12/17/17 13:17 Freq: Status: Active Protocol: Document 12/17/17 14:30 EA (Rec: 12/17/17 14:35 EA [id number]) Cervical Spine Range of Motion Cervical Spine Active Percentage Testing Position Sitting Flexion 80 Extension 70 Rotation Left 75 Rotation Right 75 Lateral Flexion Left 70 Lateral Flexion Right 70 ROM Limitations Soft Tissue Tightness Lumbar Spine Range of Motion Lumbar Spine Active Percentage Testing Position standing Flexion 100 Extension 100 Rotation Left 70 Rotation Right 80 Lateral Flexion Left 50 Lateral Flexion Right 48 ROM Limitations Soft Tissue Tightness Pain PT-OP-L Special Tests Start: 12/17/17 13:17 Freq: Status: Active Protocol: Document 12/17/17 13:21 EA (Rec: 12/17/17 13:40 EA [id number]) Special Tests Cervical Spine Special Tests Spurling's Test Test Results negative Foraminal Compression Test Results negative Lumbar Spine Special Tests Compression Test Results + sacral compression test Comments SL to right side Other- 1 Test Results + post quadrant - facets joints Comments trunk SF/Ext to left then rot to right Knee Special Tests Nelson's Test Test Results tight ITB PT-OP-M Strength Start: 12/17/17 13:17 Freq: Status: Active Protocol: Document 12/17/17 13:25 EA (Rec: 12/18/17 09:41 EA [id number]) Cervical Spine Strength Cervical Spine Manual Muscle Testing Flexion (C1-2) 5 Normal Extension 4+ Good+ Rotation Left 5 Normal Rotation Right 5 Normal Lateral Flexion Left (C3) 5 Normal Lateral Flexion Right (C3) 5 Normal Trunk Strength Trunk Manual Muscle Testing Testing Position supine/prone/SF Flexion 4+ Good+ Extension 4+ Good+ Rotation Left 4+ Good+ Rotation Right 4+ Good+ Lateral Flexion Left 4+ Good+ Lateral Flexion Right 4+ Good+ PT-OP-Q Treatments Start: 12/17/17 13:17 Freq: Status: Active Protocol: Document 02/03/18 16:36 EA (Rec: 02/03/18 16:45 EA [id number]) Cardio Equipment Recumbent Stepper (Sci-Fit) Duration (Minutes) 6 Resistance 4 Seat Position 12 Therapeutic Exercises Prone Exercises 3 Prone Exercise Name Thread and needle Side bilateral Reps/Minutes x 12 reps 2 Prone Exercise Name Trunk extension: mat Side bilateral Reps/Minutes 10x 1 Prone Exercise Name Child pose- then toward lateral sides Side bilateral Reps/Minutes x 30 secs each x 2 Sitting Exercises Seated UT/Scalenes stretching Reps/Minutes 30 x 2 each Manual Therapy Treatment Soft Tissue Mobilization 1 Body Location Left paralumbars, QL, and upper right cervicals Mobilization Type Myofascial Release Strumming Sustained Pressure Trigger Point Release Intensity/Depth Moderate Body Position Prone/Supine Comments Pillow under stomach PT-OP-R Modalities Start: 12/17/17 13:17 Freq: Status: Active Protocol: Document 02/03/18 16:36 EA (Rec: 02/03/18 16:45 EA [id number]) Electric Stimulation Electric Stimulation Interferential Current (IFC) Body Location R interscap/ thoracic/ left paralumbars Duration (Minutes) 15 Combined With Heat/Cold Hot Pack Comments Prone PT-OP-T Assessment and Plan Start: 12/17/17 13:17 Freq: Status: Active Protocol: Document 02/03/18 16:36 EA (Rec: 02/03/18 16:45 EA [id number]) Physical Therapy Assessment Assessment Summary Assessment Tolerated treatment well. No noted any signs of discomfort during therex but lathe tender to palpate on left paralumbars and right sup scap angle. Physical Therapy Plan Next Visit Focus/Plan Next Note Type Treatment Note Next Visit Plan Continue with STM/E-stim and stretching and core strengthening, assess response to HEP.
--- NOTE | 2018-02-06 11:29 | PT.OTN ---
Current Diagnoses Low back pain (02/06/18) Physical Therapy Treatment Note PT-OP-A Visit Information Start: 12/17/17 13:17 Freq: Status: Active Protocol: Document 02/06/18 11:20 SA (Rec: 02/06/18 11:29 SA [id number]) Out-Patient Physical Therapy Visit Information Visit Information Visit Type Treatment Note Visit Start Time 07:35 Visit Stop Time 08:25 Total Visit Minutes 50 Visit Number 7 Number of SOFTWARE DESIGN ANALYST Visits 1 PT-OP-B Current Condition Start: 12/17/17 13:17 Freq: Status: Active Protocol: Document 12/17/17 13:21 EA (Rec: 12/17/17 13:40 EA [id number]) Current Condition History of Current Condition Onset Date 4 years ago Current Complaints Localized R low back and posterior neck aching pain. History of Current Condition Pt reports chronic low back pain for more than ten years and neck pain started ~ 3 months ago. Pt denies any low back and neck surgery or injury or other significant history. Pt reports his works requires sitting in the computer longer time with monitor position slightly angulated to right side; states does 3-4 times yoga, hiking, out walking; states does reading with two pillows. Pt denies abnormal sensation to both UE/LE's; denies los of function to both UE/LE's Prior Treatments and Tests Sciatic n. treatment to PT with good results Future Testing and Treatments Planned None identified. Treatment Goals Patient/Caregiver Goals Patient wants to get rid of neck and low back pain Prior Functional Status Baseline Function- ADL's Independent Baseline Function- Mobility Independent Baseline Function- Recreation/Hobbies Hiking, Yoga, out side walking with no back and neck symptoms Current Functional Impairments (Reported) Functional Limitations- ADL's Independent Functional Limitations- Mobility/Gait Slight difficulty with long distance hike due to minimal low back and neck pain PT-OP-C Subjective Start: 12/17/17 13:17 Freq: Status: Active Protocol: Document 02/06/18 11:20 SA (Rec: 02/06/18 11:29 SA [id number]) OP-PT Subjective Patient Comments Patient Comments R interscap and cervical area still the most irritating, low back is off and on with symtoms. Patient Reported Progress Improving PT-OP-F Manual Assessment Start: 12/17/17 13:17 Freq: Status: Active Protocol: Document 12/17/17 13:21 EA (Rec: 12/17/17 13:40 EA [id number]) Manual Assessments Soft Tissue Assessment Soft Tissue Mobility Assessment Tigthness to both Posterior neck, SCM, Shoulder IR, protratctors, QL, paralumbars PT-OP-G Mobility & Gait Start: 12/17/17 13:17 Freq: Status: Active Protocol: Document 12/17/17 13:21 EA (Rec: 12/17/17 13:40 EA [id number]) OP Gait Assessment Gait Gait Assistance Required: Independent Comments Gait Comments Normal gait pattern PT-OP-J Posture/Palpation/Skin Start: 12/17/17 13:17 Freq: Status: Active Protocol: Document 12/17/17 13:21 EA (Rec: 12/17/17 13:40 EA [id number]) Posture Evaluation Position Standing Evaluation View Annt/Lat Head/C-Spine Posture Flexed Forward Head T-Spine Posture Neutral L-Spine Posture Flattened Shoulder Posture (L) Rounded (R) Rounded Scapula Posture (L) Protracted (R) Protracted Arm Posture (L) Internally Rotated (R) Internally Rotated Pelvis Posture Posterior Tilted Palpation Assessment Location One Palpation Findings Soft Tissue Tightness Tenderness Palpation Details Grade 1/4 tender over L1-L2 paraspinals, post neck muscles , SCM PT-OP-K Range of Motion Start: 12/17/17 13:17 Freq: Status: Active Protocol: Document 12/17/17 14:30 EA (Rec: 12/17/17 14:35 EA [id number]) Cervical Spine Range of Motion Cervical Spine Active Percentage Testing Position Sitting Flexion 80 Extension 70 Rotation Left 75 Rotation Right 75 Lateral Flexion Left 70 Lateral Flexion Right 70 ROM Limitations Soft Tissue Tightness Lumbar Spine Range of Motion Lumbar Spine Active Percentage Testing Position standing Flexion 100 Extension 100 Rotation Left 70 Rotation Right 80 Lateral Flexion Left 50 Lateral Flexion Right 48 ROM Limitations Soft Tissue Tightness Pain PT-OP-L Special Tests Start: 12/17/17 13:17 Freq: Status: Active Protocol: Document 12/17/17 13:21 EA (Rec: 12/17/17 13:40 EA [id number]) Special Tests Cervical Spine Special Tests Spurling's Test Test Results negative Foraminal Compression Test Results negative Lumbar Spine Special Tests Compression Test Results + sacral compression test Comments SL to right side Other- 1 Test Results + post quadrant - facets joints Comments trunk SF/Ext to left then rot to right Knee Special Tests Nelson's Test Test Results tight ITB PT-OP-M Strength Start: 12/17/17 13:17 Freq: Status: Active Protocol: Document 12/17/17 13:25 EA (Rec: 12/18/17 09:41 EA [id number]) Cervical Spine Strength Cervical Spine Manual Muscle Testing Flexion (C1-2) 5 Normal Extension 4+ Good+ Rotation Left 5 Normal Rotation Right 5 Normal Lateral Flexion Left (C3) 5 Normal Lateral Flexion Right (C3) 5 Normal Trunk Strength Trunk Manual Muscle Testing Testing Position supine/prone/SF Flexion 4+ Good+ Extension 4+ Good+ Rotation Left 4+ Good+ Rotation Right 4+ Good+ Lateral Flexion Left 4+ Good+ Lateral Flexion Right 4+ Good+ PT-OP-Q Treatments Start: 12/17/17 13:17 Freq: Status: Active Protocol: Document 02/03/18 16:36 EA (Rec: 02/03/18 16:45 EA [id number]) Cardio Equipment Recumbent Stepper (Sci-Fit) Duration (Minutes) 6 Resistance 4 Seat Position 12 Therapeutic Exercises Prone Exercises 3 Prone Exercise Name Thread and needle Side bilateral Reps/Minutes x 12 reps 2 Prone Exercise Name Trunk extension: mat Side bilateral Reps/Minutes 10x 1 Prone Exercise Name Child pose- then toward lateral sides Side bilateral Reps/Minutes x 30 secs each x 2 Sitting Exercises Seated UT/Scalenes stretching Reps/Minutes 30 x 2 each Manual Therapy Treatment Soft Tissue Mobilization 1 Body Location Left paralumbars, QL, and upper right cervicals Mobilization Type Myofascial Release Strumming Sustained Pressure Trigger Point Release Intensity/Depth Moderate Body Position Prone/Supine Comments Pillow under stomach PT-OP-R Modalities Start: 12/17/17 13:17 Freq: Status: Active Protocol: Document 02/06/18 11:20 SA (Rec: 02/06/18 11:29 SA [email or web address]) Electric Stimulation Electric Stimulation Interferential Current (IFC) Body Location R interscap/ thoracic/ left paralumbars Duration (Minutes) 15 Combined With Heat/Cold Hot Pack Comments Prone PT-OP-T Assessment and Plan Start: 12/17/17 13:17 Freq: Status: Active Protocol: Document 02/06/18 11:20 (Rec: 02/06/18 11:29 SA [id number]) Physical Therapy Assessment Progress Towards Goals Progress Towards Goals Progressing Toward Goals Assessment Summary Assessment Pt givent HEP handout with upper trap stretch, prone press up and wall stretch. Tolerating exercise/stretching and manual therapy well, continue to progress as tolerated with strengthening. Physical Therapy Plan Next Visit Focus/Plan Next Note Type Treatment Note Next Visit Plan Assess pateint's response to HEP and manual therapy, continue with core strengthening and stretching program.
--- NOTE | 2018-02-06 11:33 | PT.OTN ---
Current Diagnoses Low back pain (02/06/18) Physical Therapy Treatment Note PT-OP-A Visit Information Start: 12/17/17 13:17 Freq: Status: Active Protocol: Document 02/06/18 11:20 SA (Rec: 02/06/18 11:29 SA [email or web address]) Out-Patient Physical Therapy Visit Information Visit Information Visit Type Treatment Note Visit Start Time 07:35 Visit Stop Time 08:25 Total Visit Minutes 50 Visit Number 7 Number of CHOCOLATE MAKER Visits 1 PT-OP-B Current Condition Start: 12/17/17 13:17 Freq: Status: Active Protocol: Document 12/17/17 13:21 EA (Rec: 12/17/17 13:40 EA [id number]) Current Condition History of Current Condition Onset Date 4 years ago Current Complaints Localized R low back and posterior neck aching pain. History of Current Condition Pt reports chronic low back pain for more than ten years and neck pain started ~ 3 months ago. Pt denies any low back and neck surgery or injury or other significant history. Pt reports his works requires sitting in the computer longer time with monitor position slightly angulated to right side; states does 3-4 times yoga, hiking, out walking; states does reading with two pillows. Pt denies abnormal sensation to both UE/LE's; denies los of function to both UE/LE's Prior Treatments and Tests Sciatic n. treatment to PT with good results Future Testing and Treatments Planned None identified. Treatment Goals Patient/Caregiver Goals Patient wants to get rid of neck and low back pain Prior Functional Status Baseline Function- ADL's Independent Baseline Function- Mobility Independent Baseline Function- Recreation/Hobbies Hiking, Yoga, out side walking with no back and neck symptoms Current Functional Impairments (Reported) Functional Limitations- ADL's Independent Functional Limitations- Mobility/Gait Slight difficulty with long distance hike due to minimal low back and neck pain PT-OP-C Subjective Start: 12/17/17 13:17 Freq: Status: Active Protocol: Document 02/06/18 11:20 SA (Rec: 02/06/18 11:29 SA [email or web address]) OP-PT Subjective Patient Comments Patient Comments R interscap and cervical area still the most irritating, low back is off and on with symtoms. Patient Reported Progress Improving PT-OP-F Manual Assessment Start: 12/17/17 13:17 Freq: Status: Active Protocol: Document 12/17/17 13:21 EA (Rec: 12/17/17 13:40 EA [id number]) Manual Assessments Soft Tissue Assessment Soft Tissue Mobility Assessment Tigthness to both Posterior neck, SCM, Shoulder IR, protratctors, QL, paralumbars PT-OP-G Mobility & Gait Start: 12/17/17 13:17 Freq: Status: Active Protocol: Document 12/17/17 13:21 EA (Rec: 12/17/17 13:40 EA [id number]) OP Gait Assessment Gait Gait Assistance Required: Independent Comments Gait Comments Normal gait pattern PT-OP-J Posture/Palpation/Skin Start: 12/17/17 13:17 Freq: Status: Active Protocol: Document 12/17/17 13:21 EA (Rec: 12/17/17 13:40 EA [id number]) Posture Evaluation Position Standing Evaluation View Annt/Lat Head/C-Spine Posture Flexed Forward Head T-Spine Posture Neutral L-Spine Posture Flattened Shoulder Posture (L) Rounded (R) Rounded Scapula Posture (L) Protracted (R) Protracted Arm Posture (L) Internally Rotated (R) Internally Rotated Pelvis Posture Posterior Tilted Palpation Assessment Location One Palpation Findings Soft Tissue Tightness Tenderness Palpation Details Grade 1/4 tender over L1-L2 paraspinals, post neck muscles , SCM PT-OP-K Range of Motion Start: 12/17/17 13:17 Freq: Status: Active Protocol: Document 12/17/17 14:30 EA (Rec: 12/17/17 14:35 EA [id number]) Cervical Spine Range of Motion Cervical Spine Active Percentage Testing Position Sitting Flexion 80 Extension 70 Rotation Left 75 Rotation Right 75 Lateral Flexion Left 70 Lateral Flexion Right 70 ROM Limitations Soft Tissue Tightness Lumbar Spine Range of Motion Lumbar Spine Active Percentage Testing Position standing Flexion 100 Extension 100 Rotation Left 70 Rotation Right 80 Lateral Flexion Left 50 Lateral Flexion Right 48 ROM Limitations Soft Tissue Tightness Pain PT-OP-L Special Tests Start: 12/17/17 13:17 Freq: Status: Active Protocol: Document 12/17/17 13:21 EA (Rec: 12/17/17 13:40 EA [id number]) Special Tests Cervical Spine Special Tests Spurling's Test Test Results negative Foraminal Compression Test Results negative Lumbar Spine Special Tests Compression Test Results + sacral compression test Comments SL to right side Other- 1 Test Results + post quadrant - facets joints Comments trunk SF/Ext to left then rot to right Knee Special Tests Nelson's Test Test Results tight ITB PT-OP-M Strength Start: 12/17/17 13:17 Freq: Status: Active Protocol: Document 12/17/17 13:25 EA (Rec: 12/18/17 09:41 EA [id number]) Cervical Spine Strength Cervical Spine Manual Muscle Testing Flexion (C1-2) 5 Normal Extension 4+ Good+ Rotation Left 5 Normal Rotation Right 5 Normal Lateral Flexion Left (C3) 5 Normal Lateral Flexion Right (C3) 5 Normal Trunk Strength Trunk Manual Muscle Testing Testing Position supine/prone/SF Flexion 4+ Good+ Extension 4+ Good+ Rotation Left 4+ Good+ Rotation Right 4+ Good+ Lateral Flexion Left 4+ Good+ Lateral Flexion Right 4+ Good+ PT-OP-Q Treatments Start: 12/17/17 13:17 Freq: Status: Active Protocol: Document 02/06/18 11:20 SA (Rec: 02/06/18 11:33 SA [email or web address]) Cardio Equipment Recumbent Stepper (Sci-Fit) Duration (Minutes) 6 Resistance 5 Therapeutic Exercises Prone Exercises 3 Prone Exercise Name Thread and needle Side bilateral Reps/Minutes x 12 reps 2 Prone Exercise Name Trunk extension: mat Side bilateral Reps/Minutes 15 1 Prone Exercise Name Child pose- then toward lateral sides Side bilateral Reps/Minutes x 30 secs each x 2 Sitting Exercises Seated UT/Scalenes stretching Side bilateral Reps/Minutes 30 x 2 each Standing Exercises Doorway Pec Stretch Standing Exercise Name Pec Stretch Equipment Used doorway Manual Therapy Treatment Soft Tissue Mobilization R upper traps/interscap Mobilization Type Rolling Strumming Sustained Pressure Trigger Point Release Intensity/Depth Moderate Body Position Prone PT-OP-R Modalities Start: 12/17/17 13:17 Freq: Status: Active Protocol: Document 02/06/18 11:20 SA (Rec: 02/06/18 11:29 SA [email or web address]) Electric Stimulation Electric Stimulation Interferential Current (IFC) Body Location R interscap/ thoracic/ left paralumbars Duration (Minutes) 15 Combined With Heat/Cold Hot Pack Comments Prone PT-OP-T Assessment and Plan Start: 12/17/17 13:17 Freq: Status: Active Protocol: Document 02/06/18 11:20 SA (Rec: 02/06/18 11:29 SA [email or web address]) Physical Therapy Assessment Progress Towards Goals Progress Towards Goals Progressing Toward Goals Assessment Summary Assessment Pt givent HEP handout with upper trap stretch, prone press up and wall stretch. Tolerating exercise/stretching and manual therapy well, continue to progress as tolerated with strengthening. Physical Therapy Plan Next Visit Focus/Plan Next Note Type Treatment Note Next Visit Plan Assess pateint's response to HEP and manual therapy, continue with core strengthening and stretching program.
--- NOTE | 2018-02-09 14:41 | PT.OTN ---
Current Diagnoses Low back pain (02/09/18) Physical Therapy Treatment Note PT-OP-A Visit Information Start: 12/17/17 13:17 Freq: Status: Active Protocol: Document 02/09/18 13:54 EA (Rec: 02/09/18 14:25 EA [id number]) Out-Patient Physical Therapy Visit Information Visit Information Visit Type Treatment Note Visit Start Time 13:45 Visit Stop Time 14:30 Total Visit Minutes 45 Visit Number 8 PT-OP-B Current Condition Start: 12/17/17 13:17 Freq: Status: Active Protocol: Document 12/17/17 13:21 EA (Rec: 12/17/17 13:40 EA [id number]) Current Condition History of Current Condition Onset Date 4 years ago Current Complaints Localized R low back and posterior neck aching pain. History of Current Condition Pt reports chronic low back pain for more than ten years and neck pain started ~ 3 months ago. Pt denies any low back and neck surgery or injury or other significant history. Pt reports his works requires sitting in the computer longer time with monitor position slightly angulated to right side; states does 3-4 times yoga, hiking, out walking; states does reading with two pillows. Pt denies abnormal sensation to both UE/LE's; denies los of function to both UE/LE's Prior Treatments and Tests Sciatic n. treatment to PT with good results Future Testing and Treatments Planned None identified. Treatment Goals Patient/Caregiver Goals Patient wants to get rid of neck and low back pain Prior Functional Status Baseline Function- ADL's Independent Baseline Function- Mobility Independent Baseline Function- Recreation/Hobbies Hiking, Yoga, out side walking with no back and neck symptoms Current Functional Impairments (Reported) Functional Limitations- ADL's Independent Functional Limitations- Mobility/Gait Slight difficulty with long distance hike due to minimal low back and neck pain PT-OP-C Subjective Start: 12/17/17 13:17 Freq: Status: Active Protocol: Document 02/09/18 13:54 EA (Rec: 02/09/18 14:25 EA [id number]) OP-PT Subjective Patient Comments Patient Comments Pt reports upper back and neck pain much better;states went to yoga and side bending to left seems to be restricted. Patient Reported Progress Improving PT-OP-F Manual Assessment Start: 12/17/17 13:17 Freq: Status: Active Protocol: Document 12/17/17 13:21 EA (Rec: 12/17/17 13:40 EA [id number]) Manual Assessments Soft Tissue Assessment Soft Tissue Mobility Assessment Tigthness to both Posterior neck, SCM, Shoulder IR, protratctors, QL, paralumbars PT-OP-G Mobility & Gait Start: 12/17/17 13:17 Freq: Status: Active Protocol: Document 12/17/17 13:21 EA (Rec: 12/17/17 13:40 EA [id number]) OP Gait Assessment Gait Gait Assistance Required: Independent Comments Gait Comments Normal gait pattern PT-OP-J Posture/Palpation/Skin Start: 12/17/17 13:17 Freq: Status: Active Protocol: Document 12/17/17 13:21 EA (Rec: 12/17/17 13:40 EA [id number]) Posture Evaluation Position Standing Evaluation View Annt/Lat Head/C-Spine Posture Flexed Forward Head T-Spine Posture Neutral L-Spine Posture Flattened Shoulder Posture (L) Rounded (R) Rounded Scapula Posture (L) Protracted (R) Protracted Arm Posture (L) Internally Rotated (R) Internally Rotated Pelvis Posture Posterior Tilted Palpation Assessment Location One Palpation Findings Soft Tissue Tightness Tenderness Palpation Details Grade 1/4 tender over L1-L2 paraspinals, post neck muscles , SCM PT-OP-K Range of Motion Start: 12/17/17 13:17 Freq: Status: Active Protocol: Document 12/17/17 14:30 EA (Rec: 12/17/17 14:35 EA [id number]) Cervical Spine Range of Motion Cervical Spine Active Percentage Testing Position Sitting Flexion 80 Extension 70 Rotation Left 75 Rotation Right 75 Lateral Flexion Left 70 Lateral Flexion Right 70 ROM Limitations Soft Tissue Tightness Lumbar Spine Range of Motion Lumbar Spine Active Percentage Testing Position standing Flexion 100 Extension 100 Rotation Left 70 Rotation Right 80 Lateral Flexion Left 50 Lateral Flexion Right 48 ROM Limitations Soft Tissue Tightness Pain PT-OP-L Special Tests Start: 12/17/17 13:17 Freq: Status: Active Protocol: Document 12/17/17 13:21 EA (Rec: 12/17/17 13:40 EA [id number]) Special Tests Cervical Spine Special Tests Spurling's Test Test Results negative Foraminal Compression Test Results negative Lumbar Spine Special Tests Compression Test Results + sacral compression test Comments SL to right side Other- 1 Test Results + post quadrant - facets joints Comments trunk SF/Ext to left then rot to right Knee Special Tests Nelson's Test Test Results tight ITB PT-OP-M Strength Start: 12/17/17 13:17 Freq: Status: Active Protocol: Document 12/17/17 13:25 EA (Rec: 12/18/17 09:41 EA [id number]) Cervical Spine Strength Cervical Spine Manual Muscle Testing Flexion (C1-2) 5 Normal Extension 4+ Good+ Rotation Left 5 Normal Rotation Right 5 Normal Lateral Flexion Left (C3) 5 Normal Lateral Flexion Right (C3) 5 Normal Trunk Strength Trunk Manual Muscle Testing Testing Position supine/prone/SF Flexion 4+ Good+ Extension 4+ Good+ Rotation Left 4+ Good+ Rotation Right 4+ Good+ Lateral Flexion Left 4+ Good+ Lateral Flexion Right 4+ Good+ PT-OP-Q Treatments Start: 12/17/17 13:17 Freq: Status: Active Protocol: Document 02/09/18 13:54 EA (Rec: 02/09/18 14:25 EA [id number]) Cardio Equipment Recumbent Stepper (Sci-Fit) Duration (Minutes) 6 Resistance 4 Seat Position 12 Therapeutic Exercises Supine Exercises 1 Supine Exercise Name low trunk rot stretch Side bilateral Reps/Minutes x 15SH x 2 reps Prone Exercises 3 Prone Exercise Name Thread and needle Side bilateral Reps/Minutes x 15 reps 2 Prone Exercise Name Trunk extension: mat Side bilateral Reps/Minutes 15 1 Prone Exercise Name Child pose- then toward lateral sides Side bilateral Reps/Minutes x 30 secs each x 2 Manual Therapy Treatment Soft Tissue Mobilization 1 Body Location Left paralumbars, QL. Mobilization Type Myofascial Release Strumming Sustained Pressure Trigger Point Release Intensity/Depth Moderate Body Position Prone/Supine Comments Pillow under stomach PT-OP-R Modalities Start: 12/17/17 13:17 Freq: Status: Active Protocol: Document 02/09/18 13:54 EA (Rec: 02/09/18 14:25 EA [id number]) Electric Stimulation Electric Stimulation Interferential Current (IFC) Body Location Left paralumbars Duration (Minutes) 15 Contraction Type Normal Combined With Heat/Cold Hot Pack Comments prone PT-OP-T Assessment and Plan Start: 12/17/17 13:17 Freq: Status: Active Protocol: Document 02/09/18 13:54 EA (Rec: 02/09/18 14:25 EA [id number]) Physical Therapy Assessment Progress Towards Goals Progress Towards Goals Progressing Toward Goals Assessment Summary Assessment Tolerated treatment well; tenderness to left pralumbars is much less after manual. Patient is progressing well. Physical Therapy Plan Next Visit Focus/Plan Next Note Type Treatment Note Next Visit Plan Advance as tolerated.
--- NOTE | 2018-02-25 10:49 | PT.OTN ---
Current Diagnoses Low back pain (02/25/18) Physical Therapy Treatment Note PT-OP-A Visit Information Start: 12/17/17 13:17 Freq: Status: Active Protocol: Document 02/09/18 13:54 EA (Rec: 02/09/18 14:25 EA [id number]) Out-Patient Physical Therapy Visit Information Visit Information Visit Type Treatment Note Visit Start Time 13:45 Visit Stop Time 14:30 Total Visit Minutes 45 Visit Number 8 PT-OP-B Current Condition Start: 12/17/17 13:17 Freq: Status: Active Protocol: Document 12/17/17 13:21 EA (Rec: 12/17/17 13:40 EA [id number]) Current Condition History of Current Condition Onset Date 4 years ago Current Complaints Localized R low back and posterior neck aching pain. History of Current Condition Pt reports chronic low back pain for more than ten years and neck pain started ~ 3 months ago. Pt denies any low back and neck surgery or injury or other significant history. Pt reports his works requires sitting in the computer longer time with monitor position slightly angulated to right side; states does 3-4 times yoga, hiking, out walking; states does reading with two pillows. Pt denies abnormal sensation to both UE/LE's; denies los of function to both UE/LE's Prior Treatments and Tests Sciatic n. treatment to PT with good results Future Testing and Treatments Planned None identified. Treatment Goals Patient/Caregiver Goals Patient wants to get rid of neck and low back pain Prior Functional Status Baseline Function- ADL's Independent Baseline Function- Mobility Independent Baseline Function- Recreation/Hobbies Hiking, Yoga, out side walking with no back and neck symptoms Current Functional Impairments (Reported) Functional Limitations- ADL's Independent Functional Limitations- Mobility/Gait Slight difficulty with long distance hike due to minimal low back and neck pain PT-OP-C Subjective Start: 12/17/17 13:17 Freq: Status: Active Protocol: Document 02/25/18 07:35 EA (Rec: 02/25/18 08:14 EA [id number]) OP-PT Subjective Patient Comments Patient Comments Pt reports low back is improving a bit and right shoulder has noticeable improvement; states consistent with yoga exercises and a bit with HEP. Patient Reported Progress Improving Patient Questionnaires Oswestry Low Back Index Oswestry Score 6/50 Oswestry Impairment 1 to 19% Impaired (Score 1-19) PT-OP-F Manual Assessment Start: 12/17/17 13:17 Freq: Status: Active Protocol: Document 02/25/18 10:40 EA (Rec: 02/25/18 10:40 EA [id number]) Manual Assessments Soft Tissue Assessment Soft Tissue Mobility Assessment Very slight to both Posterior neck, SCM, Shoulder IR, protratctors, QL, paralumbars PT-OP-G Mobility & Gait Start: 12/17/17 13:17 Freq: Status: Active Protocol: Document 12/17/17 13:21 EA (Rec: 12/17/17 13:40 EA [id number]) OP Gait Assessment Gait Gait Assistance Required: Independent Comments Gait Comments Normal gait pattern PT-OP-J Posture/Palpation/Skin Start: 12/17/17 13:17 Freq: Status: Active Protocol: Document 02/25/18 10:41 EA (Rec: 02/25/18 10:41 EA [id number]) Palpation Assessment Location One Palpation Findings Soft Tissue Tightness Tenderness Palpation Details Grade 1/4 tender over L1-L2 paraspinals PT-OP-K Range of Motion Start: 12/17/17 13:17 Freq: Status: Active Protocol: Document 02/25/18 10:41 EA (Rec: 02/25/18 10:42 EA [id number]) Lumbar Spine Range of Motion Lumbar Spine Active Percentage Testing Position standing Flexion 100 Extension 100 Rotation Left 90 Rotation Right 90 Lateral Flexion Left 45 Lateral Flexion Right 45 ROM Limitations Soft Tissue Tightness Pain PT-OP-L Special Tests Start: 12/17/17 13:17 Freq: Status: Active Protocol: Document 12/17/17 13:21 EA (Rec: 12/17/17 13:40 EA [id number]) Special Tests Cervical Spine Special Tests Spurling's Test Test Results negative Foraminal Compression Test Results negative Lumbar Spine Special Tests Compression Test Results + sacral compression test Comments SL to right side Other- 1 Test Results + post quadrant - facets joints Comments trunk SF/Ext to left then rot to right Knee Special Tests Nelson's Test Test Results tight ITB PT-OP-M Strength Start: 12/17/17 13:17 Freq: Status: Active Protocol: Document 02/25/18 10:42 EA (Rec: 02/25/18 10:43 EA [id number]) Trunk Strength Trunk Manual Muscle Testing Testing Position supine/prone/SF Flexion 5 Normal Extension 5 Normal Rotation Left 5 Normal Rotation Right 5 Normal Lateral Flexion Left 5 Normal Lateral Flexion Right 5 Normal PT-OP-Q Treatments Start: 12/17/17 13:17 Freq: Status: Active Protocol: Document 02/25/18 07:35 EA (Rec: 02/25/18 08:14 EA [id number]) Cardio Equipment Recumbent Stepper (Sci-Fit) Duration (Minutes) 6 Resistance 4 Seat Position 12 Therapeutic Exercises Supine Exercises 2 Supine Exercise Name Passive stretch to left periformis Reps/Minutes x 30SH x 2 1 Supine Exercise Name low trunk rot stretch Side bilateral Reps/Minutes x 15SH x 2 reps Prone Exercises 3 Prone Exercise Name Thread and needle Side bilateral Reps/Minutes x 15 reps 1 Prone Exercise Name Child pose- then toward lateral sides Side bilateral Reps/Minutes x 30 secs each x 2 Standing Exercises 1 Standing Exercise Name Floor to waist lift: to cues with low back form and body mechanics Resistance 10-15lbs Reps/Minutes x 5 reps x 2 Manual Therapy Treatment Soft Tissue Mobilization 1 Body Location Left paralumbars, QL. Mobilization Type Myofascial Release Strumming Sustained Pressure Trigger Point Release Intensity/Depth Moderate Body Position Prone/Supine Comments Pillow under stomach PT-OP-R Modalities Start: 12/17/17 13:17 Freq: Status: Active Protocol: Document 02/25/18 07:35 EA (Rec: 02/25/18 08:14 EA [id number]) Electric Stimulation Electric Stimulation Interferential Current (IFC) Body Location Left paralumbars Duration (Minutes) 15 Contraction Type Normal Combined With Heat/Cold Hot Pack Comments prone PT-OP-T Assessment and Plan Start: 12/17/17 13:17 Freq: Status: Active Protocol: Document 02/25/18 07:35 EA (Rec: 02/25/18 08:14 EA [id number]) Physical Therapy Assessment Impairments Impairments Activity Tolerance Pain Posture ROM Soft Tissue Mobility Goals Four Impairment Impaired soft tissue flexibility to both lumbar, LE 's and neck muscles Custodial Goal (LTG) Patient will improve hamstrings, paralumbars, QL, posterior neck muscle to improved posture and prevent biomechanical alignment. LTG Duration 4 wks Excellent improvement) Three Impairment No HEP in place Custodial Goal (LTG) Patient will learn, perform, comply with HEP safely LTG Duration Goal met Two Impairment Impaired lifting mechanics and tolerance Custodial Goal (LTG) Patient will perform floor to waist lifting with proper mechanics and able to tolerated 30 lbs lifting without increase in low back symptoms LTG Duration 4 wks (progressing well) One Impairment Oswetry low back pain disability index score of 11 50 Custodial Goal (LTG) Patient will have Oswetry disability index score of 4/50 LTG Duration 4 wks (excellent results ) Progress Towards Goals Progress Towards Goals Progressing Toward Goals Assessment Summary Assessment Patient exhibits with very slight limitation with functional lumbar mobility. Significant improvement noted at this time. Patient will continue to progress and will benefit with skilled PT. Decrease session to once a week. Physical Therapy Plan Frequency and Duration Frequency of Treatment 1x/Week Duration of Treatment 6 Plan of Care Start Date 02/25/18 Plan of Care End Date 04/08/18 Therapeutic Interventions Therapeutic Interventions Home Exercise Program Joint Mobilizations Manual Therapy Patient/Caregiver Education Self-Care/Home Management Soft Tissue Mobilization Therapeutic Exercises Modalities Cold Pack/Ice Massage Electric Stimulation Hot Packs Ultrasound Next Visit Focus/Plan Next Note Type Treatment Note Next Visit Plan Advance as tolerated.
--- NOTE | 2018-02-25 10:57 | PT.OTRE ---
Current Diagnoses Low back pain (02/25/18) Past Medical History (Last Reviewed 12/10/17 @ 10:39 by Sima Becerra LPN) Foot pain (Chronic ~2014) Provider Visit Care Team Role Provider Type Jonathon Wasserman MD Attending Provider Physician Family Provider Primary Care Provider Specialty: Family Practice Address: [address] [place] [address] Email: [email or web address] Physical Therapy Re-Evaluation PT-OP-A Visit Information Start: 12/17/17 13:17 Freq: Status: Active Protocol: Document 02/09/18 13:54 EA (Rec: 02/09/18 14:25 EA [id number]) Out-Patient Physical Therapy Visit Information Visit Information Visit Type Treatment Note Visit Start Time 13:45 Visit Stop Time 14:30 Total Visit Minutes 45 Visit Number 8 PT-OP-B Current Condition Start: 12/17/17 13:17 Freq: Status: Active Protocol: Document 12/17/17 13:21 EA (Rec: 12/17/17 13:40 EA [id number]) Current Condition History of Current Condition Onset Date 4 years ago Current Complaints Localized R low back and posterior neck aching pain. History of Current Condition Pt reports chronic low back pain for more than ten years and neck pain started ~ 3 months ago. Pt denies any low back and neck surgery or injury or other significant history. Pt reports his works requires sitting in the computer longer time with monitor position slightly angulated to right side; states does 3-4 times yoga, hiking, out walking; states does reading with two pillows. Pt denies abnormal sensation to both UE/LE's; denies los of function to both UE/LE's Prior Treatments and Tests Sciatic n. treatment to PT with good results Future Testing and Treatments Planned None identified. Treatment Goals Patient/Caregiver Goals Patient wants to get rid of neck and low back pain Prior Functional Status Baseline Function- ADL's Independent Baseline Function- Mobility Independent Baseline Function- Recreation/Hobbies Hiking, Yoga, out side walking with no back and neck symptoms Current Functional Impairments (Reported) Functional Limitations- ADL's Independent Functional Limitations- Mobility/Gait Slight difficulty with long distance hike due to minimal low back and neck pain PT-OP-C Subjective Start: 12/17/17 13:17 Freq: Status: Active Protocol: Document 02/25/18 07:35 EA (Rec: 02/25/18 08:14 EA [id number]) OP-PT Subjective Patient Comments Patient Comments Pt reports low back is improving a bit and right shoulder has noticeable improvement; states consistent with yoga exercises and a bit with HEP. Patient Reported Progress Improving Patient Questionnaires Oswestry Low Back Index Oswestry Score 6/50 Oswestry Impairment 1 to 19% Impaired (Score 1-19) PT-OP-F Manual Assessment Start: 12/17/17 13:17 Freq: Status: Active Protocol: Document 02/25/18 10:40 EA (Rec: 02/25/18 10:40 EA [id number]) Manual Assessments Soft Tissue Assessment Soft Tissue Mobility Assessment Very slight to both Posterior neck, SCM, Shoulder IR, protratctors, QL, paralumbars PT-OP-G Mobility & Gait Start: 12/17/17 13:17 Freq: Status: Active Protocol: Document 12/17/17 13:21 EA (Rec: 12/17/17 13:40 EA [id number]) OP Gait Assessment Gait Gait Assistance Required: Independent Comments Gait Comments Normal gait pattern PT-OP-J Posture/Palpation/Skin Start: 12/17/17 13:17 Freq: Status: Active Protocol: Document 02/25/18 10:41 EA (Rec: 02/25/18 10:41 EA [id number]) Palpation Assessment Location One Palpation Findings Soft Tissue Tightness Tenderness Palpation Details Grade 1/4 tender over L1-L2 paraspinals PT-OP-K Range of Motion Start: 12/17/17 13:17 Freq: Status: Active Protocol: Document 02/25/18 10:41 EA (Rec: 02/25/18 10:42 EA [id number]) Lumbar Spine Range of Motion Lumbar Spine Active Percentage Testing Position standing Flexion 100 Extension 100 Rotation Left 90 Rotation Right 90 Lateral Flexion Left 45 Lateral Flexion Right 45 ROM Limitations Soft Tissue Tightness Pain PT-OP-L Special Tests Start: 12/17/17 13:17 Freq: Status: Active Protocol: Document 12/17/17 13:21 EA (Rec: 12/17/17 13:40 EA [id number]) Special Tests Cervical Spine Special Tests Spurling's Test Test Results negative Foraminal Compression Test Results negative Lumbar Spine Special Tests Compression Test Results + sacral compression test Comments SL to right side Other- 1 Test Results + post quadrant - facets joints Comments trunk SF/Ext to left then rot to right Knee Special Tests Nelson's Test Test Results tight ITB PT-OP-M Strength Start: 12/17/17 13:17 Freq: Status: Active Protocol: Document 02/25/18 10:42 EA (Rec: 02/25/18 10:43 EA [id number]) Trunk Strength Trunk Manual Muscle Testing Testing Position supine/prone/SF Flexion 5 Normal Extension 5 Normal Rotation Left 5 Normal Rotation Right 5 Normal Lateral Flexion Left 5 Normal Lateral Flexion Right 5 Normal PT-OP-Q Treatments Start: 12/17/17 13:17 Freq: Status: Active Protocol: Document 02/25/18 07:35 EA (Rec: 02/25/18 08:14 EA [id number]) Cardio Equipment Recumbent Stepper (Sci-Fit) Duration (Minutes) 6 Resistance 4 Seat Position 12 Therapeutic Exercises Supine Exercises 2 Supine Exercise Name Passive stretch to left periformis Reps/Minutes x 30SH x 2 1 Supine Exercise Name low trunk rot stretch Side bilateral Reps/Minutes x 15SH x 2 reps Prone Exercises 3 Prone Exercise Name Thread and needle Side bilateral Reps/Minutes x 15 reps 1 Prone Exercise Name Child pose- then toward lateral sides Side bilateral Reps/Minutes x 30 secs each x 2 Standing Exercises 1 Standing Exercise Name Floor to waist lift: to cues with low back form and body mechanics Resistance 10-15lbs Reps/Minutes x 5 reps x 2 Manual Therapy Treatment Soft Tissue Mobilization 1 Body Location Left paralumbars, QL. Mobilization Type Myofascial Release Strumming Sustained Pressure Trigger Point Release Intensity/Depth Moderate Body Position Prone/Supine Comments Pillow under stomach PT-OP-R Modalities Start: 12/17/17 13:17 Freq: Status: Active Protocol: Document 02/25/18 07:35 EA (Rec: 02/25/18 08:14 EA [id number]) Electric Stimulation Electric Stimulation Interferential Current (IFC) Body Location Left paralumbars Duration (Minutes) 15 Contraction Type Normal Combined With Heat/Cold Hot Pack Comments prone PT-OP-T Assessment and Plan Start: 12/17/17 13:17 Freq: Status: Active Protocol: Document 02/25/18 07:35 EA (Rec: 02/25/18 08:14 EA [id number]) Physical Therapy Assessment Impairments Impairments Activity Tolerance Pain Posture ROM Soft Tissue Mobility Goals Four Impairment Impaired soft tissue flexibility to both lumbar, LE 's and neck muscles [facility] Goal (LTG) Patient will improve hamstrings, paralumbars, QL, posterior neck muscle to improved posture and prevent biomechanical alignment. LTG Duration 4 wks Excellent improvement) Three Impairment No HEP in place Drier Take Off Tender Goal (LTG) Patient will learn, perform, comply with HEP safely LTG Duration Goal met Two Impairment Impaired lifting mechanics and tolerance Drier Take Off Tender Goal (LTG) Patient will perform floor to waist lifting with proper mechanics and able to tolerated 30 lbs lifting without increase in low back symptoms LTG Duration 4 wks (progressing well) One Impairment Oswetry low back pain disability index score of 11/ 50 [facility] Goal (LTG) Patient will have Oswetry disability index score of 4/50 LTG Duration 4 wks (excellent results 6/50) Progress Towards Goals Progress Towards Goals Progressing Toward Goals Assessment Summary Assessment Patient exhibits with very slight limitation with functional lumbar mobility. Significant improvement noted at this time. Patient will continue to progress and will benefit with skilled PT. Decrease session to once a week. Physical Therapy Plan Frequency and Duration Frequency of Treatment 1x/Week Duration of Treatment 6 Plan of Care Start Date 02/25/18 Plan of Care End Date 04/08/18 Therapeutic Interventions Therapeutic Interventions Home Exercise Program Joint Mobilizations Manual Therapy Patient/Caregiver Education Self-Care/Home Management Soft Tissue Mobilization Therapeutic Exercises Modalities Cold Pack/Ice Massage Electric Stimulation Hot Packs Ultrasound Next Visit Focus/Plan Next Note Type Treatment Note Next Visit Plan Advance as tolerated.
--- NOTE | 2018-02-25 10:57 | PT.OPPOC ---
Current Diagnoses Low back pain (02/25/18) Provider Visit Care Team Role Provider Type Jonathon Wasserman MD Attending Provider Physician Family Provider Primary Care Provider Specialty: Family Practice Address: [address] [place] [address], [facility] Email: [email or web address] Plan Of Care PT-OP-T Assessment and Plan Start: 12/17/17 13:17 Freq: Status: Active Protocol: Document 02/25/18 07:35 EA (Rec: 02/25/18 08:14 EA [id number]) Physical Therapy Assessment Impairments Impairments Activity Tolerance Pain Posture ROM Soft Tissue Mobility Goals Four Impairment Impaired soft tissue flexibility to both lumbar, LE 's and neck muscles Snf Goal (LTG) Patient will improve hamstrings, paralumbars, QL, posterior neck muscle to improved posture and prevent biomechanical alignment. LTG Duration 4 wks Excellent improvement) Three Impairment No HEP in place Rate Engineer Goal (LTG) Patient will learn, perform, comply with HEP safely LTG Duration Goal met Two Impairment Impaired lifting mechanics and tolerance Snf Goal (LTG) Patient will perform floor to waist lifting with proper mechanics and able to tolerated 30 lbs lifting without increase in low back symptoms LTG Duration 4 wks (progressing well) One Impairment Oswetry low back pain disability index score of 11/ 50 Snf Goal (LTG) Patient will have Oswetry disability index score of 4/50 LTG Duration 4 wks (excellent results 6/50) Progress Towards Goals Progress Towards Goals Progressing Toward Goals Assessment Summary Assessment Patient exhibits with very slight limitation with functional lumbar mobility. Significant improvement noted at this time. Patient will continue to progress and will benefit with skilled PT. Decrease session to once a week. Physical Therapy Plan Frequency and Duration Frequency of Treatment 1x/Week Duration of Treatment 6 Plan of Care Start Date 02/25/18 Plan of Care End Date 04/08/18 Therapeutic Interventions Therapeutic Interventions Home Exercise Program Joint Mobilizations Manual Therapy Patient/Caregiver Education Self-Care/Home Management Soft Tissue Mobilization Therapeutic Exercises Modalities Cold Pack/Ice Massage Electric Stimulation Hot Packs Ultrasound Next Visit Focus/Plan Next Note Type Treatment Note Next Visit Plan Advance as tolerated. Plan of Care Dates Plan of Care Start Date 02/25/18 Plan of Care End Date 02/13/19 Please Sign and Return: I have reviewed this Plan of Care and certify that the skilled therapy services above are required to meet the patient?s needs. Physician Signature Date Printed Name and Credentials Clinical Instructor Signature Printed Name and Credentials
--- NOTE | 2018-02-27 10:48 | PT.OTN ---
Current Diagnoses Low back pain (02/27/18) Physical Therapy Treatment Note PT-OP-A Visit Information Start: 12/17/17 13:17 Freq: Status: Active Protocol: Document 02/27/18 07:30 AMB (Rec: 02/27/18 08:03 AMB [id number]) Out-Patient Physical Therapy Visit Information Visit Information Visit Type Treatment Note Visit Start Time 07:30 Visit Stop Time 08:25 Total Visit Minutes 55 Visit Number 10 PT-OP-B Current Condition Start: 12/17/17 13:17 Freq: Status: Active Protocol: Document 12/17/17 13:21 EA (Rec: 12/17/17 13:40 EA [id number]) Current Condition History of Current Condition Onset Date 4 years ago Current Complaints Localized R low back and posterior neck aching pain. History of Current Condition Pt reports chronic low back pain for more than ten years and neck pain started ~ 3 months ago. Pt denies any low back and neck surgery or injury or other significant history. Pt reports his works requires sitting in the computer longer time with monitor position slightly angulated to right side; states does 3-4 times yoga, hiking, out walking; states does reading with two pillows. Pt denies abnormal sensation to both UE/LE's; denies los of function to both UE/LE's Prior Treatments and Tests Sciatic n. treatment to PT with good results Future Testing and Treatments Planned None identified. Treatment Goals Patient/Caregiver Goals Patient wants to get rid of neck and low back pain Prior Functional Status Baseline Function- ADL's Independent Baseline Function- Mobility Independent Baseline Function- Recreation/Hobbies Hiking, Yoga, out side walking with no back and neck symptoms Current Functional Impairments (Reported) Functional Limitations- ADL's Independent Functional Limitations- Mobility/Gait Slight difficulty with long distance hike due to minimal low back and neck pain PT-OP-C Subjective Start: 12/17/17 13:17 Freq: Status: Active Protocol: Document 02/27/18 07:30 AMB (Rec: 02/27/18 09:12 AMB [id number]) OP-PT Subjective Patient Comments Patient Comments Pt states he is doing well, got back from holiday recently and getting back into his schedule. PT-OP-F Manual Assessment Start: 12/17/17 13:17 Freq: Status: Active Protocol: Document 02/25/18 10:40 EA (Rec: 02/25/18 10:40 EA [id number]) Manual Assessments Soft Tissue Assessment Soft Tissue Mobility Assessment Very slight to both Posterior neck, SCM, Shoulder IR, protratctors, QL, paralumbars PT-OP-G Mobility & Gait Start: 12/17/17 13:17 Freq: Status: Active Protocol: Document 12/17/17 13:21 EA (Rec: 12/17/17 13:40 EA [id number]) OP Gait Assessment Gait Gait Assistance Required: Independent Comments Gait Comments Normal gait pattern PT-OP-J Posture/Palpation/Skin Start: 12/17/17 13:17 Freq: Status: Active Protocol: Document 02/25/18 10:41 EA (Rec: 02/25/18 10:41 EA [id number]) Palpation Assessment Location One Palpation Findings Soft Tissue Tightness Tenderness Palpation Details Grade 1/4 tender over L1-L2 paraspinals PT-OP-K Range of Motion Start: 12/17/17 13:17 Freq: Status: Active Protocol: Document 02/25/18 10:41 EA (Rec: 02/25/18 10:42 EA [id number]) Lumbar Spine Range of Motion Lumbar Spine Active Percentage Testing Position standing Flexion 100 Extension 100 Rotation Left 90 Rotation Right 90 Lateral Flexion Left 45 Lateral Flexion Right 45 ROM Limitations Soft Tissue Tightness Pain PT-OP-L Special Tests Start: 12/17/17 13:17 Freq: Status: Active Protocol: Document 12/17/17 13:21 EA (Rec: 12/17/17 13:40 EA [id number]) Special Tests Cervical Spine Special Tests Spurling's Test Test Results negative Foraminal Compression Test Results negative Lumbar Spine Special Tests Compression Test Results + sacral compression test Comments SL to right side Other- 1 Test Results + post quadrant - facets joints Comments trunk SF/Ext to left then rot to right Knee Special Tests Nelson's Test Test Results tight ITB PT-OP-M Strength Start: 12/17/17 13:17 Freq: Status: Active Protocol: Document 02/25/18 10:42 EA (Rec: 02/25/18 10:43 EA [id number]) Trunk Strength Trunk Manual Muscle Testing Testing Position supine/prone/SF Flexion 5 Normal Extension 5 Normal Rotation Left 5 Normal Rotation Right 5 Normal Lateral Flexion Left 5 Normal Lateral Flexion Right 5 Normal PT-OP-Q Treatments Start: 12/17/17 13:17 Freq: Status: Active Protocol: Document 02/27/18 07:30 AMB (Rec: 02/27/18 10:48 AMB [id number]) Therapeutic Exercises Supine Exercises 4 Supine Exercise Name SLR with TrA stabilization Reps/Minutes 10 3 Supine Exercise Name hamstring/ IT band stretch Comments with strap 2 Supine Exercise Name Passive stretch to left periformis Reps/Minutes x 30SH x 2 Prone Exercises 3 Prone Exercise Name Thread and needle Side bilateral Reps/Minutes x 15 reps 1 Prone Exercise Name Child pose- then toward lateral sides Side bilateral Reps/Minutes x 30 secs each x 2 Sidelying Exercises 1 Sidelying Exercise Name hip abd SLR Reps/Minutes 10 Manual Therapy Treatment Soft Tissue Mobilization 1 Body Location L lumbar Mobilization Type Myofascial Release Intensity/Depth Moderate Body Position Sidelying Joint Mobilizations 1 Joint L 2-3, L34, L 45 Direction PPIVM Grade II Body Position Sidelying PT-OP-R Modalities Start: 12/17/17 13:17 Freq: Status: Active Protocol: Document 02/27/18 07:30 AMB (Rec: 02/27/18 09:12 AMB [id number]) Electric Stimulation Electric Stimulation Pre-Modulated Body Location L low back/ R shoulder Duration (Minutes) 15 Patient Position Prone Combined With Heat/Cold Hot Pack PT-OP-T Assessment and Plan Start: 12/17/17 13:17 Freq: Status: Active Protocol: Document 02/27/18 07:30 AMB (Rec: 02/27/18 09:12 AMB [id number]) Physical Therapy Assessment Assessment Summary Assessment Pt tolerated therapy well, needed cues for core stability . Physical Therapy Plan Next Visit Focus/Plan Next Note Type Treatment Note Next Visit Plan Advance core/hip stability
--- NOTE | 2018-03-02 16:50 | PT.OTN ---
Current Diagnoses Low back pain (03/02/18) Physical Therapy Treatment Note PT-OP-A Visit Information Start: 12/17/17 13:17 Freq: Status: Active Protocol: Document 03/02/18 16:05 EA (Rec: 03/02/18 16:43 EA [id number]) Out-Patient Physical Therapy Visit Information Visit Information Visit Type Treatment Note Visit Start Time 13:45 Visit Stop Time 14:30 Total Visit Minutes 45 Visit Number 11 PT-OP-B Current Condition Start: 12/17/17 13:17 Freq: Status: Active Protocol: Document 12/17/17 13:21 EA (Rec: 12/17/17 13:40 EA [id number]) Current Condition History of Current Condition Onset Date 4 years ago Current Complaints Localized R low back and posterior neck aching pain. History of Current Condition Pt reports chronic low back pain for more than ten years and neck pain started ~ 3 months ago. Pt denies any low back and neck surgery or injury or other significant history. Pt reports his works requires sitting in the computer longer time with monitor position slightly angulated to right side; states does 3-4 times yoga, hiking, out walking; states does reading with two pillows. Pt denies abnormal sensation to both UE/LE's; denies los of function to both UE/LE's Prior Treatments and Tests Sciatic n. treatment to PT with good results Future Testing and Treatments Planned None identified. Treatment Goals Patient/Caregiver Goals Patient wants to get rid of neck and low back pain Prior Functional Status Baseline Function- ADL's Independent Baseline Function- Mobility Independent Baseline Function- Recreation/Hobbies Hiking, Yoga, out side walking with no back and neck symptoms Current Functional Impairments (Reported) Functional Limitations- ADL's Independent Functional Limitations- Mobility/Gait Slight difficulty with long distance hike due to minimal low back and neck pain PT-OP-C Subjective Start: 12/17/17 13:17 Freq: Status: Active Protocol: Document 03/02/18 16:05 EA (Rec: 03/02/18 16:43 EA [id number]) OP-PT Subjective Patient Comments Patient Comments Pt reports right shoulder is bothering most than left. Patient Reported Progress Improving PT-OP-F Manual Assessment Start: 12/17/17 13:17 Freq: Status: Active Protocol: Document 02/25/18 10:40 EA (Rec: 02/25/18 10:40 EA [id number]) Manual Assessments Soft Tissue Assessment Soft Tissue Mobility Assessment Very slight to both Posterior neck, SCM, Shoulder IR, protratctors, QL, paralumbars PT-OP-G Mobility & Gait Start: 12/17/17 13:17 Freq: Status: Active Protocol: Document 12/17/17 13:21 EA (Rec: 12/17/17 13:40 EA [id number]) OP Gait Assessment Gait Gait Assistance Required: Independent Comments Gait Comments Normal gait pattern PT-OP-J Posture/Palpation/Skin Start: 12/17/17 13:17 Freq: Status: Active Protocol: Document 02/25/18 10:41 EA (Rec: 02/25/18 10:41 EA [id number]) Palpation Assessment Location One Palpation Findings Soft Tissue Tightness Tenderness Palpation Details Grade 1/4 tender over L1-L2 paraspinals PT-OP-K Range of Motion Start: 12/17/17 13:17 Freq: Status: Active Protocol: Document 02/25/18 10:41 EA (Rec: 02/25/18 10:42 EA [id number]) Lumbar Spine Range of Motion Lumbar Spine Active Percentage Testing Position standing Flexion 100 Extension 100 Rotation Left 90 Rotation Right 90 Lateral Flexion Left 45 Lateral Flexion Right 45 ROM Limitations Soft Tissue Tightness Pain PT-OP-L Special Tests Start: 12/17/17 13:17 Freq: Status: Active Protocol: Document 12/17/17 13:21 EA (Rec: 12/17/17 13:40 EA [id number]) Special Tests Cervical Spine Special Tests Spurling's Test Test Results negative Foraminal Compression Test Results negative Lumbar Spine Special Tests Compression Test Results + sacral compression test Comments SL to right side Other- 1 Test Results + post quadrant - facets joints Comments trunk SF/Ext to left then rot to right Knee Special Tests Nelson's Test Test Results tight ITB PT-OP-M Strength Start: 12/17/17 13:17 Freq: Status: Active Protocol: Document 02/25/18 10:42 EA (Rec: 02/25/18 10:43 EA [id number]) Trunk Strength Trunk Manual Muscle Testing Testing Position supine/prone/SF Flexion 5 Normal Extension 5 Normal Rotation Left 5 Normal Rotation Right 5 Normal Lateral Flexion Left 5 Normal Lateral Flexion Right 5 Normal PT-OP-Q Treatments Start: 12/17/17 13:17 Freq: Status: Active Protocol: Document 03/02/18 16:05 EA (Rec: 03/02/18 16:43 EA [id number]) Cardio Equipment Recumbent Stepper (Sci-Fit) Duration (Minutes) 6 Resistance 4 Seat Position 12 Therapeutic Exercises Supine Exercises 2 Supine Exercise Name Passive stretch to left periformis Reps/Minutes x 30SH x 2 1 Supine Exercise Name low trunk rot stretch Side bilateral Reps/Minutes x 15SH x 2 reps Prone Exercises 3 Prone Exercise Name Thread and needle Side bilateral Reps/Minutes x 15 reps 1 Prone Exercise Name Child pose- then toward lateral sides Side bilateral Reps/Minutes x 30 secs each x 2 Manual Therapy Treatment Soft Tissue Mobilization 1 Body Location L lumbar, R LS Mobilization Type Myofascial Release Rolling Sustained Pressure Intensity/Depth Moderate Body Position Sidelying PT-OP-R Modalities Start: 12/17/17 13:17 Freq: Status: Active Protocol: Document 03/02/18 16:05 EA (Rec: 03/02/18 16:43 EA [id number]) Electric Stimulation Electric Stimulation Interferential Current (IFC) Body Location Left paralumbars Duration (Minutes) 15 Contraction Type Normal Combined With Heat/Cold Hot Pack Comments prone PT-OP-T Assessment and Plan Start: 12/17/17 13:17 Freq: Status: Active Protocol: Document 03/02/18 16:05 EA (Rec: 03/02/18 16:43 EA [id number]) Physical Therapy Assessment Assessment Summary Assessment Pt tolerated treatment with slight tender points at right sup scap angle.. Left lumbar symptoms is less at this time. Re-asses ROM next session. Physical Therapy Plan Next Visit Focus/Plan Next Note Type Treatment Note Next Visit Plan Re-lumbar ROM and strength next session.
--- NOTE | 2018-03-05 17:18 | PT.OTN ---
Current Diagnoses Low back pain (03/05/18) Physical Therapy Treatment Note PT-OP-A Visit Information Start: 12/17/17 13:17 Freq: Status: Active Protocol: Document 03/05/18 16:44 EA (Rec: 03/05/18 16:48 EA [id number]) Out-Patient Physical Therapy Visit Information Visit Information Visit Type Treatment Note Visit Start Time 16:00 Visit Stop Time 16:45 Total Visit Minutes 45 Visit Number 12 PT-OP-B Current Condition Start: 12/17/17 13:17 Freq: Status: Active Protocol: Document 12/17/17 13:21 EA (Rec: 12/17/17 13:40 EA [id number]) Current Condition History of Current Condition Onset Date 4 years ago Current Complaints Localized R low back and posterior neck aching pain. History of Current Condition Pt reports chronic low back pain for more than ten years and neck pain started ~ 3 months ago. Pt denies any low back and neck surgery or injury or other significant history. Pt reports his works requires sitting in the computer longer time with monitor position slightly angulated to right side; states does 3-4 times yoga, hiking, out walking; states does reading with two pillows. Pt denies abnormal sensation to both UE/LE's; denies los of function to both UE/LE's Prior Treatments and Tests Sciatic n. treatment to PT with good results Future Testing and Treatments Planned None identified. Treatment Goals Patient/Caregiver Goals Patient wants to get rid of neck and low back pain Prior Functional Status Baseline Function- ADL's Independent Baseline Function- Mobility Independent Baseline Function- Recreation/Hobbies Hiking, Yoga, out side walking with no back and neck symptoms Current Functional Impairments (Reported) Functional Limitations- ADL's Independent Functional Limitations- Mobility/Gait Slight difficulty with long distance hike due to minimal low back and neck pain PT-OP-C Subjective Start: 12/17/17 13:17 Freq: Status: Active Protocol: Document 03/05/18 16:44 EA (Rec: 03/05/18 16:48 EA [id number]) OP-PT Subjective Patient Comments Patient Comments My back feels better after manual and heat; states it kept coming back. Patient reports does a lot of leg lift exerises on her yoga. PT-OP-F Manual Assessment Start: 12/17/17 13:17 Freq: Status: Active Protocol: Document 02/25/18 10:40 EA (Rec: 02/25/18 10:40 EA [id number]) Manual Assessments Soft Tissue Assessment Soft Tissue Mobility Assessment Very slight to both Posterior neck, SCM, Shoulder IR, protratctors, QL, paralumbars PT-OP-G Mobility & Gait Start: 12/17/17 13:17 Freq: Status: Active Protocol: Document 12/17/17 13:21 EA (Rec: 12/17/17 13:40 EA [id number]) OP Gait Assessment Gait Gait Assistance Required: Independent Comments Gait Comments Normal gait pattern PT-OP-J Posture/Palpation/Skin Start: 12/17/17 13:17 Freq: Status: Active Protocol: Document 02/25/18 10:41 EA (Rec: 02/25/18 10:41 EA [id number]) Palpation Assessment Location One Palpation Findings Soft Tissue Tightness Tenderness Palpation Details Grade 1/4 tender over L1-L2 paraspinals PT-OP-K Range of Motion Start: 12/17/17 13:17 Freq: Status: Active Protocol: Document 02/25/18 10:41 EA (Rec: 02/25/18 10:42 EA [id number]) Lumbar Spine Range of Motion Lumbar Spine Active Percentage Testing Position standing Flexion 100 Extension 100 Rotation Left 90 Rotation Right 90 Lateral Flexion Left 45 Lateral Flexion Right 45 ROM Limitations Soft Tissue Tightness Pain PT-OP-L Special Tests Start: 12/17/17 13:17 Freq: Status: Active Protocol: Document 12/17/17 13:21 EA (Rec: 12/17/17 13:40 EA [id number]) Special Tests Cervical Spine Special Tests Spurling's Test Test Results negative Foraminal Compression Test Results negative Lumbar Spine Special Tests Compression Test Results + sacral compression test Comments SL to right side Other- 1 Test Results + post quadrant - facets joints Comments trunk SF/Ext to left then rot to right Knee Special Tests Nelson's Test Test Results tight ITB PT-OP-M Strength Start: 12/17/17 13:17 Freq: Status: Active Protocol: Document 02/25/18 10:42 EA (Rec: 02/25/18 10:43 EA [id number]) Trunk Strength Trunk Manual Muscle Testing Testing Position supine/prone/SF Flexion 5 Normal Extension 5 Normal Rotation Left 5 Normal Rotation Right 5 Normal Lateral Flexion Left 5 Normal Lateral Flexion Right 5 Normal PT-OP-Q Treatments Start: 12/17/17 13:17 Freq: Status: Active Protocol: Document 03/05/18 16:44 EA (Rec: 03/05/18 16:48 EA [id number]) Cardio Equipment Recumbent Stepper (Sci-Fit) Duration (Minutes) 6 Resistance 4 Seat Position 12 Therapeutic Exercises Supine Exercises 4 Supine Exercise Name SLR with TrA stabilization Reps/Minutes 10 3 Supine Exercise Name hamstring/ IT band stretch Comments with strap Prone Exercises 3 Prone Exercise Name Thread and needle Side bilateral Reps/Minutes x 15 reps 2 Prone Exercise Name PLank: mountain climber, hip ext Side bilateral Reps/Minutes x 15 reps 1 Prone Exercise Name Child pose- then toward lateral sides Side bilateral Reps/Minutes x 30 secs each x 2 Manual Therapy Treatment Soft Tissue Mobilization 1 Body Location L lumbar, R LS Mobilization Type Myofascial Release Rolling Sustained Pressure Intensity/Depth Moderate Body Position Sidelying PT-OP-R Modalities Start: 12/17/17 13:17 Freq: Status: Active Protocol: Document 03/05/18 16:49 EA (Rec: 03/05/18 16:49 EA [id number]) Electric Stimulation Electric Stimulation Interferential Current (IFC) Body Location Left paralumbars Duration (Minutes) 15 Contraction Type Normal Combined With Heat/Cold Hot Pack Comments prone PT-OP-T Assessment and Plan Start: 12/17/17 13:17 Freq: Status: Active Protocol: Document 03/05/18 16:44 EA (Rec: 03/05/18 16:48 EA [id number]) Physical Therapy Assessment Assessment Summary Assessment I recommended to refrain from leg lift exercise which causes issue to low back area. Physical Therapy Plan Next Visit Focus/Plan Next Note Type Treatment Note Next Visit Plan Advance core/hip stability
--- NOTE | 2018-03-09 16:57 | PT.OTN ---
Current Diagnoses Low back pain (03/09/18) Physical Therapy Treatment Note PT-OP-A Visit Information Start: 12/17/17 13:17 Freq: Status: Active Protocol: Document 03/09/18 16:47 EA (Rec: 03/09/18 16:57 EA [id number]) Out-Patient Physical Therapy Visit Information Visit Information Visit Type Treatment Note Visit Start Time 16:00 Visit Stop Time 16:45 Total Visit Minutes 45 Visit Number 13 PT-OP-B Current Condition Start: 12/17/17 13:17 Freq: Status: Active Protocol: Document 12/17/17 13:21 EA (Rec: 12/17/17 13:40 EA [id number]) Current Condition History of Current Condition Onset Date 4 years ago Current Complaints Localized R low back and posterior neck aching pain. History of Current Condition Pt reports chronic low back pain for more than ten years and neck pain started ~ 3 months ago. Pt denies any low back and neck surgery or injury or other significant history. Pt reports his works requires sitting in the computer longer time with monitor position slightly angulated to right side; states does 3-4 times yoga, hiking, out walking; states does reading with two pillows. Pt denies abnormal sensation to both UE/LE's; denies los of function to both UE/LE's Prior Treatments and Tests Sciatic n. treatment to PT with good results Future Testing and Treatments Planned None identified. Treatment Goals Patient/Caregiver Goals Patient wants to get rid of neck and low back pain Prior Functional Status Baseline Function- ADL's Independent Baseline Function- Mobility Independent Baseline Function- Recreation/Hobbies Hiking, Yoga, out side walking with no back and neck symptoms Current Functional Impairments (Reported) Functional Limitations- ADL's Independent Functional Limitations- Mobility/Gait Slight difficulty with long distance hike due to minimal low back and neck pain PT-OP-C Subjective Start: 12/17/17 13:17 Freq: Status: Active Protocol: Document 03/09/18 16:47 EA (Rec: 03/09/18 16:57 EA [id number]) OP-PT Subjective Patient Comments Patient Comments Pt reports compliant with recommended back exercises pre -cautions; states low back feels good after last session. Patient Reported Progress Improving PT-OP-F Manual Assessment Start: 12/17/17 13:17 Freq: Status: Active Protocol: Document 02/25/18 10:40 EA (Rec: 02/25/18 10:40 EA [id number]) Manual Assessments Soft Tissue Assessment Soft Tissue Mobility Assessment Very slight to both Posterior neck, SCM, Shoulder IR, protratctors, QL, paralumbars PT-OP-G Mobility & Gait Start: 12/17/17 13:17 Freq: Status: Active Protocol: Document 12/17/17 13:21 EA (Rec: 12/17/17 13:40 EA [id number]) OP Gait Assessment Gait Gait Assistance Required: Independent Comments Gait Comments Normal gait pattern PT-OP-J Posture/Palpation/Skin Start: 12/17/17 13:17 Freq: Status: Active Protocol: Document 02/25/18 10:41 EA (Rec: 02/25/18 10:41 EA [id number]) Palpation Assessment Location One Palpation Findings Soft Tissue Tightness Tenderness Palpation Details Grade 1/4 tender over L1-L2 paraspinals PT-OP-K Range of Motion Start: 12/17/17 13:17 Freq: Status: Active Protocol: Document 02/25/18 10:41 EA (Rec: 02/25/18 10:42 EA [id number]) Lumbar Spine Range of Motion Lumbar Spine Active Percentage Testing Position standing Flexion 100 Extension 100 Rotation Left 90 Rotation Right 90 Lateral Flexion Left 45 Lateral Flexion Right 45 ROM Limitations Soft Tissue Tightness Pain PT-OP-L Special Tests Start: 12/17/17 13:17 Freq: Status: Active Protocol: Document 12/17/17 13:21 EA (Rec: 12/17/17 13:40 EA [id number]) Special Tests Cervical Spine Special Tests Spurling's Test Test Results negative Foraminal Compression Test Results negative Lumbar Spine Special Tests Compression Test Results + sacral compression test Comments SL to right side Other- 1 Test Results + post quadrant - facets joints Comments trunk SF/Ext to left then rot to right Knee Special Tests Nelson's Test Test Results tight ITB PT-OP-M Strength Start: 12/17/17 13:17 Freq: Status: Active Protocol: Document 02/25/18 10:42 EA (Rec: 02/25/18 10:43 EA [id number]) Trunk Strength Trunk Manual Muscle Testing Testing Position supine/prone/SF Flexion 5 Normal Extension 5 Normal Rotation Left 5 Normal Rotation Right 5 Normal Lateral Flexion Left 5 Normal Lateral Flexion Right 5 Normal PT-OP-Q Treatments Start: 12/17/17 13:17 Freq: Status: Active Protocol: Document 03/09/18 16:47 EA (Rec: 03/09/18 16:57 EA [id number]) Cardio Equipment Recumbent Stepper (Sci-Fit) Duration (Minutes) 6 Resistance 4 Seat Position 12 Therapeutic Exercises Supine Exercises 4 Supine Exercise Name SLR with TrA stabilization Reps/Minutes 10x 2 sets 3 Supine Exercise Name hamstring/ IT band stretch Comments with strap 2 Supine Exercise Name Passive stretch to left periformis Reps/Minutes x 30SH x 2 Prone Exercises 3 Prone Exercise Name Thread and needle Side bilateral Reps/Minutes x 15 reps 2 Prone Exercise Name PLank: mountain climber, hip ext Side bilateral Reps/Minutes x 15 reps 1 Prone Exercise Name Child pose- then toward lateral sides Side bilateral Reps/Minutes x 30 secs each x 2 Manual Therapy Treatment Soft Tissue Mobilization 1 Body Location L lumbar, Mobilization Type Myofascial Release Rolling Sustained Pressure Intensity/Depth Moderate Body Position Sidelying PT-OP-R Modalities Start: 12/17/17 13:17 Freq: Status: Active Protocol: Document 03/09/18 16:47 EA (Rec: 03/09/18 16:57 EA [id number]) Electric Stimulation Electric Stimulation Interferential Current (IFC) Body Location Left paralumbars Duration (Minutes) 15 Contraction Type Normal Combined With Heat/Cold Hot Pack Comments prone Ultrasound Therapy Treatment Left Lower Back Treatment Duration (minutes) 5 Patient Position Prone Frequency Setting (mHz) 1 Intensity Setting (w/cm2) 1.2 Comments L2-L5 left paralumbars PT-OP-T Assessment and Plan Start: 12/17/17 13:17 Freq: Status: Active Protocol: Document 03/09/18 16:47 EA (Rec: 03/09/18 16:57 EA [id number]) Physical Therapy Assessment Assessment Summary Assessment Tolerated treatment well. Symptoms continue to decrease and patient understanding with his condition is improving. Physical Therapy Plan Next Visit Focus/Plan Next Note Type Treatment Note Next Visit Plan Review HEP.
--- NOTE | 2018-03-12 17:12 | PT.OTN ---
Current Diagnoses Low back pain (03/12/18) Physical Therapy Treatment Note PT-OP-A Visit Information Start: 12/17/17 13:17 Freq: Status: Active Protocol: Document 03/12/18 16:42 EA (Rec: 03/12/18 16:46 EA [id number]) Out-Patient Physical Therapy Visit Information Visit Information Visit Type Treatment Note Visit Start Time 16:00 Visit Stop Time 16:50 Total Visit Minutes 50 Visit Number 14 PT-OP-B Current Condition Start: 12/17/17 13:17 Freq: Status: Active Protocol: Document 12/17/17 13:21 EA (Rec: 12/17/17 13:40 EA [id number]) Current Condition History of Current Condition Onset Date 4 years ago Current Complaints Localized R low back and posterior neck aching pain. History of Current Condition Pt reports chronic low back pain for more than ten years and neck pain started ~ 3 months ago. Pt denies any low back and neck surgery or injury or other significant history. Pt reports his works requires sitting in the computer longer time with monitor position slightly angulated to right side; states does 3-4 times yoga, hiking, out walking; states does reading with two pillows. Pt denies abnormal sensation to both UE/LE's; denies los of function to both UE/LE's Prior Treatments and Tests Sciatic n. treatment to PT with good results Future Testing and Treatments Planned None identified. Treatment Goals Patient/Caregiver Goals Patient wants to get rid of neck and low back pain Prior Functional Status Baseline Function- ADL's Independent Baseline Function- Mobility Independent Baseline Function- Recreation/Hobbies Hiking, Yoga, out side walking with no back and neck symptoms Current Functional Impairments (Reported) Functional Limitations- ADL's Independent Functional Limitations- Mobility/Gait Slight difficulty with long distance hike due to minimal low back and neck pain PT-OP-C Subjective Start: 12/17/17 13:17 Freq: Status: Active Protocol: Document 03/12/18 16:42 EA (Rec: 03/12/18 16:46 EA [id number]) OP-PT Subjective Patient Comments Patient Comments Pt reports low back is getting better after refraining from olf abdominal exercises. Patient Reported Progress ` PT-OP-F Manual Assessment Start: 12/17/17 13:17 Freq: Status: Active Protocol: Document 02/25/18 10:40 EA (Rec: 02/25/18 10:40 EA [id number]) Manual Assessments Soft Tissue Assessment Soft Tissue Mobility Assessment Very slight to both Posterior neck, SCM, Shoulder IR, protratctors, QL, paralumbars PT-OP-G Mobility & Gait Start: 12/17/17 13:17 Freq: Status: Active Protocol: Document 12/17/17 13:21 EA (Rec: 12/17/17 13:40 EA [id number]) OP Gait Assessment Gait Gait Assistance Required: Independent Comments Gait Comments Normal gait pattern PT-OP-J Posture/Palpation/Skin Start: 12/17/17 13:17 Freq: Status: Active Protocol: Document 02/25/18 10:41 EA (Rec: 02/25/18 10:41 EA [id number]) Palpation Assessment Location One Palpation Findings Soft Tissue Tightness Tenderness Palpation Details Grade 1/4 tender over L1-L2 paraspinals PT-OP-K Range of Motion Start: 12/17/17 13:17 Freq: Status: Active Protocol: Document 02/25/18 10:41 EA (Rec: 02/25/18 10:42 EA [id number]) Lumbar Spine Range of Motion Lumbar Spine Active Percentage Testing Position standing Flexion 100 Extension 100 Rotation Left 90 Rotation Right 90 Lateral Flexion Left 45 Lateral Flexion Right 45 ROM Limitations Soft Tissue Tightness Pain PT-OP-L Special Tests Start: 12/17/17 13:17 Freq: Status: Active Protocol: Document 12/17/17 13:21 EA (Rec: 12/17/17 13:40 EA [id number]) Special Tests Cervical Spine Special Tests Spurling's Test Test Results negative Foraminal Compression Test Results negative Lumbar Spine Special Tests Compression Test Results + sacral compression test Comments SL to right side Other- 1 Test Results + post quadrant - facets joints Comments trunk SF/Ext to left then rot to right Knee Special Tests Nelson's Test Test Results tight ITB PT-OP-M Strength Start: 12/17/17 13:17 Freq: Status: Active Protocol: Document 02/25/18 10:42 EA (Rec: 02/25/18 10:43 EA [id number]) Trunk Strength Trunk Manual Muscle Testing Testing Position supine/prone/SF Flexion 5 Normal Extension 5 Normal Rotation Left 5 Normal Rotation Right 5 Normal Lateral Flexion Left 5 Normal Lateral Flexion Right 5 Normal PT-OP-Q Treatments Start: 12/17/17 13:17 Freq: Status: Active Protocol: Document 03/12/18 16:42 EA (Rec: 03/12/18 16:46 EA [id number]) Cardio Equipment Recumbent Stepper (Sci-Fit) Duration (Minutes) 6 Resistance 4 Seat Position 12 Therapeutic Exercises Supine Exercises 4 Supine Exercise Name SLR with TrA stabilization Reps/Minutes 10x 2 sets 3 Supine Exercise Name hamstring/ IT band stretch Comments with strap Prone Exercises 2 Prone Exercise Name PLank: mountain climber, hip ext Side bilateral Reps/Minutes x 15 reps 1 Prone Exercise Name Child pose- then toward lateral sides Side bilateral Reps/Minutes x 30 secs each x 2 Manual Therapy Treatment Soft Tissue Mobilization 1 Body Location L lumbar, Mobilization Type Myofascial Release Rolling Sustained Pressure Intensity/Depth Moderate Body Position Sidelying Self-Care/Home Management Treatment Education Patient Education [employer] Mechan[employer] Home Exercise Program Joint Protection Pain Management Posture PT-OP-R Modalities Start: 12/17/17 13:17 Freq: Status: Active Protocol: Document 03/12/18 16:42 EA (Rec: 03/12/18 16:46 EA [id number]) Electric Stimulation Electric Stimulation Interferential Current (IFC) Body Location Left paralumbars Duration (Minutes) 15 Contraction Type Normal Combined With Heat/Cold Hot Pack Comments prone PT-OP-T Assessment and Plan Start: 12/17/17 13:17 Freq: Status: Active Protocol: Document 03/12/18 16:42 EA (Rec: 03/12/18 16:46 EA [id number]) Physical Therapy Assessment Assessment Summary Assessment Pt showed good HEP carryover and safe to performed independently. Patient overall is progressing well. Physical Therapy Plan Next Visit Focus/Plan Next Visit Plan Advance as tolerated
--- NOTE | 2018-04-01 16:36 | PT.OTN ---
Current Diagnoses Low back pain (04/01/18) Physical Therapy Treatment Note PT-OP-A Visit Information Start: 12/17/17 13:17 Freq: Status: Active Protocol: Document 04/01/18 16:00 DCW (Rec: 04/01/18 16:35 DCW [id number]) Out-Patient Physical Therapy Visit Information Visit Information Visit Type Treatment Note Visit Note Treatment intentionally shortened to perserve units for last visit Visit Start Time 16:00 Visit Stop Time 16:35 Total Visit Minutes 35 Visit Number 15 PT-OP-B Current Condition Start: 12/17/17 13:17 Freq: Status: Active Protocol: Document 12/17/17 13:21 EA (Rec: 12/17/17 13:40 EA [id number]) Current Condition History of Current Condition Onset Date 4 years ago Current Complaints Localized R low back and posterior neck aching pain. History of Current Condition Pt reports chronic low back pain for more than ten years and neck pain started ~ 3 months ago. Pt denies any low back and neck surgery or injury or other significant history. Pt reports his works requires sitting in the computer longer time with monitor position slightly angulated to right side; states does 3-4 times yoga, hiking, out walking; states does reading with two pillows. Pt denies abnormal sensation to both UE/LE's; denies los of function to both UE/LE's Prior Treatments and Tests Sciatic n. treatment to PT with good results Future Testing and Treatments Planned None identified. Treatment Goals Patient/Caregiver Goals Patient wants to get rid of neck and low back pain Prior Functional Status Baseline Function- ADL's Independent Baseline Function- Mobility Independent Baseline Function- Recreation/Hobbies Hiking, Yoga, out side walking with no back and neck symptoms Current Functional Impairments (Reported) Functional Limitations- ADL's Independent Functional Limitations- Mobility/Gait Slight difficulty with long distance hike due to minimal low back and neck pain PT-OP-C Subjective Start: 12/17/17 13:17 Freq: Status: Active Protocol: Document 04/01/18 16:00 DCW (Rec: 04/01/18 16:35 DCW [id number]) OP-PT Subjective Patient Comments Patient Comments Pt reports that his exercises for core during his HEP has not been going well since he forgot which exercises he is supposed to do. PT-OP-F Manual Assessment Start: 12/17/17 13:17 Freq: Status: Active Protocol: Document 02/25/18 10:40 EA (Rec: 02/25/18 10:40 EA [id number]) Manual Assessments Soft Tissue Assessment Soft Tissue Mobility Assessment Very slight to both Posterior neck, SCM, Shoulder IR, protratctors, QL, paralumbars PT-OP-G Mobility & Gait Start: 12/17/17 13:17 Freq: Status: Active Protocol: Document 12/17/17 13:21 EA (Rec: 12/17/17 13:40 EA [id number]) OP Gait Assessment Gait Gait Assistance Required: Independent Comments Gait Comments Normal gait pattern PT-OP-J Posture/Palpation/Skin Start: 12/17/17 13:17 Freq: Status: Active Protocol: Document 02/25/18 10:41 EA (Rec: 02/25/18 10:41 EA [id number]) Palpation Assessment Location One Palpation Findings Soft Tissue Tightness Tenderness Palpation Details Grade 1/4 tender over L1-L2 paraspinals PT-OP-K Range of Motion Start: 12/17/17 13:17 Freq: Status: Active Protocol: Document 02/25/18 10:41 EA (Rec: 02/25/18 10:42 EA [id number]) Lumbar Spine Range of Motion Lumbar Spine Active Percentage Testing Position standing Flexion 100 Extension 100 Rotation Left 90 Rotation Right 90 Lateral Flexion Left 45 Lateral Flexion Right 45 ROM Limitations Soft Tissue Tightness Pain PT-OP-L Special Tests Start: 12/17/17 13:17 Freq: Status: Active Protocol: Document 12/17/17 13:21 EA (Rec: 12/17/17 13:40 EA [id number]) Special Tests Cervical Spine Special Tests Spurling's Test Test Results negative Foraminal Compression Test Results negative Lumbar Spine Special Tests Compression Test Results + sacral compression test Comments SL to right side Other- 1 Test Results + post quadrant - facets joints Comments trunk SF/Ext to left then rot to right Knee Special Tests Nelson's Test Test Results tight ITB PT-OP-M Strength Start: 12/17/17 13:17 Freq: Status: Active Protocol: Document 02/25/18 10:42 EA (Rec: 02/25/18 10:43 EA [id number]) Trunk Strength Trunk Manual Muscle Testing Testing Position supine/prone/SF Flexion 5 Normal Extension 5 Normal Rotation Left 5 Normal Rotation Right 5 Normal Lateral Flexion Left 5 Normal Lateral Flexion Right 5 Normal PT-OP-Q Treatments Start: 12/17/17 13:17 Freq: Status: Active Protocol: Document 04/01/18 16:00 DCW (Rec: 04/01/18 16:35 DCW [id number]) Therapeutic Exercises Supine Exercises 4 Supine Exercise Name SLR with TrA stabilization, marching, air bicycle Reps/Minutes 10x 2 sets 3 Supine Exercise Name hamstring/ IT band stretch Comments with strap Manual Therapy Treatment Soft Tissue Mobilization 1 Body Location L lumbar, Mobilization Type Myofascial Release Rolling Sustained Pressure Intensity/Depth Moderate Body Position Sidelying PT-OP-R Modalities Start: 12/17/17 13:17 Freq: Status: Active Protocol: Document 04/01/18 16:00 DCW (Rec: 04/01/18 16:35 DCW [id number]) Hot Pack/Cold Pack Treatment Hot Pack Location Lumbar spine Patient Position Prone Treatment Duration (minutes) 10 PT-OP-T Assessment and Plan Start: 12/17/17 13:17 Freq: Status: Active Protocol: Document 04/01/18 16:00 DCW (Rec: 04/01/18 16:35 DCW [id number]) Physical Therapy Assessment Assessment Summary Assessment Pt agreeable to shortened session today to be able to have full session with primary therapist next visit, due to limitations with remaining authorized units. Pt has had improvement, stating that he was able to snowboard for ~4 hours yesterday before noticing any increased pain. Physical Therapy Plan Next Visit Focus/Plan Next Note Type Discharge Summary Next Visit Plan Advance as tolerated
--- NOTE | 2018-04-08 10:02 | PT.OTN ---
Current Diagnoses Low back pain (04/08/18) Physical Therapy Treatment Note PT-OP-A Visit Information Start: 12/17/17 13:17 Freq: Status: Active Protocol: Document 04/08/18 09:50 EA (Rec: 04/08/18 10:02 EA [id number]) Out-Patient Physical Therapy Visit Information Visit Information Visit Type Treatment Note Visit Note Discharge to this date Visit Start Time 09:05 Visit Stop Time 09:50 Total Visit Minutes 40 Visit Number 12 PT-OP-B Current Condition Start: 12/17/17 13:17 Freq: Status: Active Protocol: Document 12/17/17 13:21 EA (Rec: 12/17/17 13:40 EA [id number]) Current Condition History of Current Condition Onset Date 4 years ago Current Complaints Localized R low back and posterior neck aching pain. History of Current Condition Pt reports chronic low back pain for more than ten years and neck pain started ~ 3 months ago. Pt denies any low back and neck surgery or injury or other significant history. Pt reports his works requires sitting in the computer longer time with monitor position slightly angulated to right side; states does 3-4 times yoga, hiking, out walking; states does reading with two pillows. Pt denies abnormal sensation to both UE/LE's; denies los of function to both UE/LE's Prior Treatments and Tests Sciatic n. treatment to PT with good results Future Testing and Treatments Planned None identified. Treatment Goals Patient/Caregiver Goals Patient wants to get rid of neck and low back pain Prior Functional Status Baseline Function- ADL's Independent Baseline Function- Mobility Independent Baseline Function- Recreation/Hobbies Hiking, Yoga, out side walking with no back and neck symptoms Current Functional Impairments (Reported) Functional Limitations- ADL's Independent Functional Limitations- Mobility/Gait Slight difficulty with long distance hike due to minimal low back and neck pain PT-OP-C Subjective Start: 12/17/17 13:17 Freq: Status: Active Protocol: Document 04/08/18 09:50 EA (Rec: 04/08/18 10:02 EA [id number]) OP-PT Subjective Patient Comments Patient Comments Pt reports he has no pain same as before since refraining from personal core exercises; states would like to know more core exercises and would like to write it down by himself to remember easily. Patient Reported Progress Improving PT-OP-F Manual Assessment Start: 12/17/17 13:17 Freq: Status: Active Protocol: Document 02/25/18 10:40 EA (Rec: 02/25/18 10:40 EA [id number]) Manual Assessments Soft Tissue Assessment Soft Tissue Mobility Assessment Very slight to both Posterior neck, SCM, Shoulder IR, protratctors, QL, paralumbars PT-OP-G Mobility & Gait Start: 12/17/17 13:17 Freq: Status: Active Protocol: Document 12/17/17 13:21 EA (Rec: 12/17/17 13:40 EA [id number]) OP Gait Assessment Gait Gait Assistance Required: Independent Comments Gait Comments Normal gait pattern PT-OP-J Posture/Palpation/Skin Start: 12/17/17 13:17 Freq: Status: Active Protocol: Document 02/25/18 10:41 EA (Rec: 02/25/18 10:41 EA [id number]) Palpation Assessment Location One Palpation Findings Soft Tissue Tightness Tenderness Palpation Details Grade 1/4 tender over L1-L2 paraspinals PT-OP-K Range of Motion Start: 12/17/17 13:17 Freq: Status: Active Protocol: Document 02/25/18 10:41 EA (Rec: 02/25/18 10:42 EA [id number]) Lumbar Spine Range of Motion Lumbar Spine Active Percentage Testing Position standing Flexion 100 Extension 100 Rotation Left 90 Rotation Right 90 Lateral Flexion Left 45 Lateral Flexion Right 45 ROM Limitations Soft Tissue Tightness Pain PT-OP-L Special Tests Start: 12/17/17 13:17 Freq: Status: Active Protocol: Document 12/17/17 13:21 EA (Rec: 12/17/17 13:40 EA [id number]) Special Tests Cervical Spine Special Tests Spurling's Test Test Results negative Foraminal Compression Test Results negative Lumbar Spine Special Tests Compression Test Results + sacral compression test Comments SL to right side Other- 1 Test Results + post quadrant - facets joints Comments trunk SF/Ext to left then rot to right Knee Special Tests Nelson's Test Test Results tight ITB PT-OP-M Strength Start: 12/17/17 13:17 Freq: Status: Active Protocol: Document 02/25/18 10:42 EA (Rec: 02/25/18 10:43 EA [id number]) Trunk Strength Trunk Manual Muscle Testing Testing Position supine/prone/SF Flexion 5 Normal Extension 5 Normal Rotation Left 5 Normal Rotation Right 5 Normal Lateral Flexion Left 5 Normal Lateral Flexion Right 5 Normal PT-OP-Q Treatments Start: 12/17/17 13:17 Freq: Status: Active Protocol: Document 04/08/18 09:50 EA (Rec: 04/08/18 10:02 EA [id number]) Cardio Equipment Recumbent Stepper (Sci-Fit) Duration (Minutes) 6 Resistance 4 Seat Position 12 Therapeutic Exercises Supine Exercises 6 Supine Exercise Name Staitb sit up with leg raises Reps/Minutes x 10 reps x 3 sets each legs Comments HEP comp 5 Supine Exercise Name SKTC/DKTC Reps/Minutes x 15SH x 3 reps Comments HEP comp 4 Supine Exercise Name SLR with TrA stabilization, marching, air bicycle Reps/Minutes 10x 2 sets Comments HEP com 3 Comments HEP comp 2 Supine Exercise Name Passive stretch to left periformis Reps/Minutes x 30SH x 2 Comments HEP comp 1 Supine Exercise Name Abdominal sit-ups Reps/Minutes x 30 reps x 2 sets Comments HEP comp Prone Exercises 3 Prone Exercise Name Thread and needle Side bilateral Reps/Minutes x 15 reps Comments HEP comp 2 Prone Exercise Name PLank: mountain climber, hip ext Side bilateral Reps/Minutes x 15 reps each legs Comments HEP comp 1 Prone Exercise Name Child pose- then toward lateral sides Side bilateral Reps/Minutes x 30 secs each x 2 Comments HEP comp Self-Care/Home Management Treatment Education Patient Education Body Mechanics Home Exercise Program Joint Protection Pain Management Posture Other Education Discussed the importance of HEP; exercises safety and recovery PT-OP-R Modalities Start: 12/17/17 13:17 Freq: Status: Active Protocol: Document 04/01/18 16:00 DCW (Rec: 04/01/18 16:35 DCW [id number]) Hot Pack/Cold Pack Treatment Hot Pack Location Lumbar spine Patient Position Prone Treatment Duration (minutes) 10 PT-OP-T Assessment and Plan Start: 12/17/17 13:17 Freq: Status: Active Protocol: Document 04/08/18 09:50 EA (Rec: 04/08/18 10:02 EA [id number]) Physical Therapy Assessment Assessment Summary Assessment Pt demonstrates good exercises awareness and safety; patient have educated with safety and explained important forms during exercises. Patient is good to discharge at this time . Patient has shwon good progress upon discharge today. Physical Therapy Plan Discharge Physical Therapy Discharge Reasons Goals Met
--- NOTE | 2018-04-08 10:02 | PT.OPDS ---
Current Diagnoses Low back pain (04/08/18) Provider Visit Care Team Role Provider Type Jonathon Wasserman MD Attending Provider Physician Family Provider Primary Care Provider Specialty: Family Practice Address: [address] [place] [address], [facility] Email: [email or web address] Visit Number Visit Number 12 Discharge Summary PT-OP-B Current Condition Start: 12/17/17 13:17 Freq: Status: Active Protocol: Document 12/17/17 13:21 EA (Rec: 12/17/17 13:40 EA [id number]) Current Condition History of Current Condition Onset Date 4 years ago Current Complaints Localized R low back and posterior neck aching pain. History of Current Condition Pt reports chronic low back pain for more than ten years and neck pain started ~ 3 months ago. Pt denies any low back and neck surgery or injury or other significant history. Pt reports his works requires sitting in the computer longer time with monitor position slightly angulated to right side; states does 3-4 times yoga, hiking, out walking; states does reading with two pillows. Pt denies abnormal sensation to both UE/LE's; denies los of function to both UE/LE's Prior Treatments and Tests Sciatic n. treatment to PT with good results Future Testing and Treatments Planned None identified. Treatment Goals Patient/Caregiver Goals Patient wants to get rid of neck and low back pain Prior Functional Status Baseline Function- ADL's Independent Baseline Function- Mobility Independent Baseline Function- Recreation/Hobbies Hiking, Yoga, out side walking with no back and neck symptoms Current Functional Impairments (Reported) Functional Limitations- ADL's Independent Functional Limitations- Mobility/Gait Slight difficulty with long distance hike due to minimal low back and neck pain PT-OP-C Subjective Start: 12/17/17 13:17 Freq: Status: Active Protocol: Document 04/08/18 09:50 EA (Rec: 04/08/18 10:02 EA [id number]) OP-PT Subjective Patient Comments Patient Comments Pt reports he has no pain same as before since refraining from personal core exercises; states would like to know more core exercises and would like to write it down by himself to remember easily. Patient Reported Progress Improving PT-OP-F Manual Assessment Start: 12/17/17 13:17 Freq: Status: Active Protocol: Document 02/25/18 10:40 EA (Rec: 02/25/18 10:40 EA [id number]) Manual Assessments Soft Tissue Assessment Soft Tissue Mobility Assessment Very slight to both Posterior neck, SCM, Shoulder IR, protratctors, QL, paralumbars PT-OP-G Mobility & Gait Start: 12/17/17 13:17 Freq: Status: Active Protocol: Document 12/17/17 13:21 EA (Rec: 12/17/17 13:40 EA [id number]) OP Gait Assessment Gait Gait Assistance Required: Independent Comments Gait Comments Normal gait pattern PT-OP-J Posture/Palpation/Skin Start: 12/17/17 13:17 Freq: Status: Active Protocol: Document 02/25/18 10:41 EA (Rec: 02/25/18 10:41 EA [id number]) Palpation Assessment Location One Palpation Findings Soft Tissue Tightness Tenderness Palpation Details Grade 1/4 tender over L1-L2 paraspinals PT-OP-K Range of Motion Start: 12/17/17 13:17 Freq: Status: Active Protocol: Document 02/25/18 10:41 EA (Rec: 02/25/18 10:42 EA [id number]) Lumbar Spine Range of Motion Lumbar Spine Active Percentage Testing Position standing Flexion 100 Extension 100 Rotation Left 90 Rotation Right 90 Lateral Flexion Left 45 Lateral Flexion Right 45 ROM Limitations Soft Tissue Tightness Pain PT-OP-L Special Tests Start: 12/17/17 13:17 Freq: Status: Active Protocol: Document 12/17/17 13:21 EA (Rec: 12/17/17 13:40 EA [id number]) Special Tests Cervical Spine Special Tests Spurling's Test Test Results negative Foraminal Compression Test Results negative Lumbar Spine Special Tests Compression Test Results + sacral compression test Comments SL to right side Other- 1 Test Results + post quadrant - facets joints Comments trunk SF/Ext to left then rot to right Knee Special Tests Nelson's Test Test Results tight ITB PT-OP-M Strength Start: 12/17/17 13:17 Freq: Status: Active Protocol: Document 02/25/18 10:42 EA (Rec: 02/25/18 10:43 EA [id number]) Trunk Strength Trunk Manual Muscle Testing Testing Position supine/prone/SF Flexion 5 Normal Extension 5 Normal Rotation Left 5 Normal Rotation Right 5 Normal Lateral Flexion Left 5 Normal Lateral Flexion Right 5 Normal PT-OP-T Assessment and Plan Start: 12/17/17 13:17 Freq: Status: Active Protocol: Document 04/08/18 09:50 EA (Rec: 04/08/18 10:02 EA [id number]) Physical Therapy Assessment Assessment Summary Assessment Pt demonstrates good exercises awareness and safety; patient have educated with safety and explained important forms during exercises. Patient is good to discharge at this time . Patient has shown good progress upon discharge today. Physical Therapy Plan Discharge Physical Therapy Discharge Reasons Goals Met
== END 2018-08-20 12:10 | disposition home or self-care (01) ==
LOC: PHYS 09:00
PROVIDERS: Family Provider Family Medicine; PCP Family Medicine; Visit Provider Family Medicine
DX: M54.5 Low back pain (principal)
CPT/HCPCS: 97010; 97014; 97110; 97140; 97161; 97535; G0283

== ENCOUNTER → 2019-11-23 07:38 | Outpatient (CLI) | payer OTHER, SELFPAY ==
[2019-11-23 09:29] LABS: Add Manual Diff / Slide Review NO; Basophils Absolute Auto 0 /uL (0-100); Basophils Percent Auto 0.5 % (0-2); Eosinophils Absolute Auto 200 /uL (0-450); Eosinophils Percent Auto 2.6 % (2-4); Hematocrit 41.9 % (41-53); Lymphocytes Absolute Auto 1800 /uL (1100-4500); Mean Corpuscular HGB Conc 33.4 % (30-36); Mean Corpuscular Hemoglobin 30.4 PG (26-34); Monocytes Absolute Auto 700 /uL (0-900); Monocytes Percent Auto 12.1 % (3-14); Neutrophils Absolute Auto 3100 /uL (1500-7000); Neutrophils Percent Auto 53.8 % (50-75); Platelet Count 179 X10^3/uL (150-400); Red Cell Distribution Width 13.9 % (11.6-14.8); White Blood Cell Count 5.7 X10^3/uL (4.5-11.0)
[2019-11-23 09:59] LABS: Alanine Aminotransferase 23 IU/L (<50); Albumin 4.4 g/dL (3.5-5.0); Albumin Globulin Ratio 1.4 (1.0-2.8); Alkaline Phosphatase 46 U/L (38-126); Aspartate Aminotransferase 25 IU/L (17-59); BUN Creatinine Ratio 22.4 (6-22); Bilirubin Total 0.4 mg/dL (0.2-1.3); Blood Urea Nitrogen 17 mg/dL (9-20); Calcium 9.6 mg/dL (8.4-10.2); Carbon Dioxide 30 mmol/L (22-32); Chloride 100 mmol/L (98-107); Cholesterol 184 mg/dL (140-199); Estimated Glomerular Filt Rate > 60.0 mL/min (>60); Globulin 3.1 g/dL (1.7-4.1); Glucose 95 mg/dL (70-100); HDL Cholesterol 49 mg/dL (40-60); HEMOLYSIS < 15 (0-50); LDL Cholesterol Calculated 99 mg/dL (<100); Potassium 4.1 mmol/L (3.4-5.1); Sodium 139 mmol/L (137-145); Total Protein 7.5 g/dL (6.3-8.2); Triglycerides 178 mg/dL (35-150)
[2019-11-23 10:26] LABS: TSH w/ Reflex to FT4 3.32 uIU/mL (0.47-4.68)
== END ==
PROVIDERS: Family Provider Family Medicine; PCP Family Medicine; Referring Provider Family Medicine; Visit Provider Family Medicine
DX: E78.2 Mixed hyperlipidemia (principal)
CPT/HCPCS: 36415; 80053; 80061; 84443; 85025

== ENCOUNTER → 2019-12-31 08:24 | Outpatient (CLI) | payer OTHER, SELFPAY ==
[2020-01-03 07:48] LABS: COVID19 Sendout Not Detected (Not Detect)
== END ==
PROVIDERS: Family Provider Family Medicine; PCP Family Medicine; Visit Provider Physician Assistant
DX: Z11.59 Encounter for screening for other viral diseases (principal)
CPT/HCPCS: 87635

== ENCOUNTER 2020-01-03 07:47 | Day surgery (SDC) | payer OTHER, SELFPAY ==
[2020-01-03] VITALS (7 sets, daily range): BP systolic 107–131; BP diastolic 67–78; PULSE 51–82; RESP 9–16; TEMP 36.2–36.7; O2SAT 97–98; BMI 24.4
[2020-01-03] MEDS: LACTATED RINGERS 1,000 ML 200 ML IV (08:10)
--- NOTE | 2020-01-03 08:27 | PM.HP.1 ---
History of Present Illness History of Present Illness Date Patient Seen: 01/03/20 Time Patient Seen: 08:27 Chief complaint: SDC Narrative: The patient presents for colorectal sreening. They have never had any previous examination for such. No personal or family history of colon cancer. On further history denies any recent gastrointestinal symptoms. No nausea, vomiting, abdominal pain, loss of appetite, unexplained weight loss, change in bowel habits, diarrhea, constipation, melena, hematochezia, or bright red blood per rectum. Patient History Medical History Foot pain (Chronic ~2014) Family & Social History Family History Father Age: 72 Atrial fibrillation Hypertension Mental health problem Stroke Sebaceous cyst Grandfather Heart disease Grandmother Heart disease Grandfather Cancer Grandmother Cancer Heart disease Hypertension High cholesterol Mental health problem Social History: household members spouse Tobacco & Substance use: Smoking Status Former smoker alcohol intake current alcohol intake frequency a few times a week Substance Use Type marijuana Meds Home Medications and Allergies Home Medications Medication Instructions Recorded Confirmed Type clobetasol 0.05 % topical cream 1 applictn TOP DAILY #30 gram 11/17/18 01/03/20 Rx Allergies Allergy/AdvReac Type Severity Reaction Status Date / Time No Known Drug Allergies Allergy Verified 11/22/19 11:21 Review of Systems Review of Systems Narrative: A 10 point review of systems is negative except as noted in the HPI Exam Vital Signs (past 8 hours): - 01/03/20 08:02 Temperature 97.8 F Pulse Rate 59 L Respiratory Rate 16 Blood Pressure 131/73 Pulse Oximetry 98 Oxygen Delivery Method Room Air Narrative Exam Narrative: General-no acute distress, well nourished adult male HEENT-moist mucous membranes, no scleral icterus Neck-supple, no lymphadenopathy Chest- non labored respirations, clear to auscultation bilaterally Cardiac-regular rate no peripheral edema Abdomen-soft, nontender, non distended Extremities-warm, well perfused Neurological-alert and oriented, no focal deficits Assessment & Plan Assessment & Plan narrative: The patient requires colorectal screening and colonoscopy is recommended. Technical details were discussed. Risks, benefits, alternatives explained. Risks including but not limited to myocardial infarction, aspiration, bleeding, pain, missed lesion, incomplete examination, need for further radiographic studies, colonic perforation, and need for major abdominal surgery were discussed. All questions were answered to their satisfaction, and they are in agreement with this plan.
[2020-01-03] MEDS: MIDAZOLAM 5 MG/5 ML VIAL IV (08:43)
[2020-01-03] MEDS: fentaNYL 250 MCG/5 ML INJ IV (08:43)
--- NOTE | 2020-01-03 08:59 | PM.OP.ENDO ---
Operative Date/Time/Diagnoses Date of procedure: 01/03/20 Time of procedure: 08:59 Pre-op diagnosis: Screening colonoscopy Post-op diagnosis: same Procedure & Clinicians Study performed: Colonoscopy Same procedure as scheduled: Yes Indications: 49-year-old male no prior colonoscopy presents for routine screening Surgeon: Eliud Walters Procedure Notes SCOAP/Timeout: Performed Procedure in detail: Patient placed in left lateral recumbent position. Time out was performed. Procedural sedation was administered with Versed and Fentanyl. Examination began with a thorough inspection of the perianal area there was no evidence of fissures, fistulae, external hemorrhoids or cutaneous malignancy. The colonoscopy scope was then placed into the rectum the the lumen was insufflated with air. The scope was carefully advanced forward. Ultimately the cecum was intubated and confirmed by identification of the ileocecal valve, the appendiceal orifice and the confluence of the taenia. The scope was then slowly withdrawn examining colon thoroughly in all directions. In the rectum the rectal columns were identified and retroflexion of the scope was performed for inspection of the distal rectum and anal canal. The colonoscopy was notable for the followin. Quality of the preparation-excellent 2. No masses polyps 3. Grade 1 internal hemorrhoids Scope withdrawal time: 7 Sedation minutes: 20 Findings: internal hemorrhoids Specimen(s): none sent Complications: none Impression: Normal colonoscopy Post-procedure Recommendations: Colonscopy in 10 years Disposition: same day surgery
--- NOTE | 2020-01-03 09:11 | SUR.PHASEI ---
To PACU, very drowsy, awake, drinking juice, asking questions repeatedly. Very drowsy. Denies pain/nausea
--- NOTE | 2020-01-03 09:51 | SUR.PHASEII ---
Pt up and ambulating and now dressed, gait steady and waiting for ride in .
== END 2020-01-03 09:55 | disposition home or self-care (01) ==
PROVIDERS: Family Provider Family Medicine; PCP Family Medicine; Referring Provider Family Medicine; Visit Provider Surgery
PROC: 0DJD8ZZ Inspection of Lower Intestinal Tract, Via Natural or Artificial Opening Endoscopic (ICD-10-PCS; CPT 45378; principal; 2020-01-03 08:30)
DX: Z12.11 Encounter for screening for malignant neoplasm of colon (principal); K64.0 First degree hemorrhoids; K64.8 Other hemorrhoids
CPT/HCPCS: 45378; 99152; J2250; J3010

== ENCOUNTER → 2021-12-17 08:03 | Outpatient (CLI) | payer OTHER, SELFPAY ==
[2021-12-17 09:51] LABS: Add Manual Diff / Slide Review NO; Basophils Absolute Auto 0 /uL (0-100); Basophils Percent Auto 0.7 % (0-2); Eosinophils Absolute Auto 100 /uL (0-450); Eosinophils Percent Auto 2.8 % (2-4); Hematocrit 40.9 % (41-53); Lymphocytes Absolute Auto 1500 /uL (1100-4500); Lymphocytes Percent Auto 30.4 % (25-40); Mean Corpuscular HGB Conc 34.2 % (30-36); Mean Corpuscular Hemoglobin 30.6 PG (26-34); Mean Corpuscular Volume 89.2 fL (80-100); Monocytes Absolute Auto 600 /uL (0-900); Neutrophils Absolute Auto 2800 /uL (1500-7000); Neutrophils Percent Auto 55.1 % (50-75); Platelet Count 182 X10^3/uL (150-400); Red Blood Cell Count 4.59 X10^6/uL (4.5-5.9)
[2021-12-17 10:32] LABS: Alanine Aminotransferase 22 IU/L (<50); Albumin 4.3 g/dL (3.5-5.0); Albumin Globulin Ratio 1.3 (1.0-2.8); Alkaline Phosphatase 54 U/L (38-126); Aspartate Aminotransferase 22 IU/L (17-59); BUN Creatinine Ratio 16.5 (6-22); Bilirubin Total 0.3 mg/dL (0.2-1.3); Blood Urea Nitrogen 13 mg/dL (9-20); Calcium 9.3 mg/dL (8.4-10.2); Carbon Dioxide 31 mmol/L (22-32); Chloride 102 mmol/L (98-107); Cholesterol 191 mg/dL (140-199); Estimated Glomerular Filt Rate > 60 mL/min (>60); Globulin 3.2 g/dL (1.7-4.1); Glucose 98 mg/dL (70-100); HDL Cholesterol 46 mg/dL (40-60); HEMOLYSIS < 15 (0-50); LDL Cholesterol Calculated 115 mg/dL (<100); Potassium 4.4 mmol/L (3.4-5.1); Sodium 141 mmol/L (137-145); Total Protein 7.5 g/dL (6.3-8.2); Triglycerides 149 mg/dL (35-150)
== END ==
PROVIDERS: Family Provider Family Medicine; PCP Family Medicine; Referring Provider Family Medicine; Visit Provider Family Medicine
DX: E78.2 Mixed hyperlipidemia (principal)
CPT/HCPCS: 36415; 80053; 80061; 84443; 85025

== ENCOUNTER → 2023-03-03 10:22 | Outpatient (CLI) | payer OTHER, SELFPAY ==
--- NOTE | 2023-03-03 10:23 | DI.RAD.S_ITS ---
PROCEDURE: XR KNEE LT 3V INDICATIONS: left knee pain TECHNIQUE: 3 views of the knee were acquired. COMPARISON: None. FINDINGS: Bones: No fractures or dislocations. No suspicious bony lesions. Soft tissues: Small joint effusion. No suspicious soft tissue calcifications. IMPRESSION: No acute osseous abnormality. If pain persists with conservative management, consider repeat x-ray in 10-14 days or cross-sectional imaging. Dictated by: Dequan Perales M.D. on 03/03/2023 at 12:37 Approved by: Dequan Perales M.D. on 03/03/2023 at 12:38
--- NOTE | 2023-03-03 10:23 | DI.RAD.S_ITS ---
PROCEDURE: XR CERVICAL SPINE 2V OR 3V INDICATIONS: cervical neck pain TECHNIQUE: 3 view(s) of the cervical spine were acquired. COMPARISON: None. FINDINGS: Bones: No fractures or dislocations to the C7 level. Straightening of the normal cervical lordosis. Mild multilevel degenerative changes, most pronounced at C4-C5. The lateral masses of C1 appear intact on the odontoid view. No suspicious bony lesions. Soft tissues: No prevertebral soft tissue swelling. IMPRESSION: Mild degenerative changes of the cervical spine. Dictated by: Dequan Perales M.D. on 03/03/2023 at 12:37 Approved by: Dequan Perales M.D. on 03/03/2023 at 12:37
== END ==
PROVIDERS: Family Provider Family Medicine; PCP Family Medicine; Referring Provider Family Medicine; Visit Provider Family Medicine
DX: M47.812 Spondylosis without myelopathy or radiculopathy, cervical region (principal); M54.2 Cervicalgia; M25.462 Effusion, left knee; M25.562 Pain in left knee
CPT/HCPCS: 72040; 73562

== ENCOUNTER → 2023-09-25 09:01 | Outpatient (CLI) | payer OTHER, SELFPAY ==
[2023-09-25 09:50] LABS: Add Manual Diff / Slide Review NO; Basophils Absolute Auto 0 /uL (0-100); Basophils Percent Auto 0.8 % (0-2); Eosinophils Absolute Auto 200 /uL (0-450); Eosinophils Percent Auto 4.3 % (2-4); Hematocrit 41.1 % (41-53); Hemoglobin 13.9 g/dL (13.5-17.5); Lymphocytes Absolute Auto 1700 /uL (1100-4500); Lymphocytes Percent Auto 33.5 % (25-40); Mean Corpuscular HGB Conc 33.7 % (30-36); Mean Corpuscular Hemoglobin 30.7 PG (26-34); Monocytes Absolute Auto 600 /uL (0-900); Monocytes Percent Auto 11.5 % (3-14); Neutrophils Absolute Auto 2500 /uL (1500-7000); Neutrophils Percent Auto 49.9 % (50-75); Platelet Count 212 X10^3/uL (150-400); Red Blood Cell Count 4.52 X10^6/uL (4.5-5.9); Red Cell Distribution Width 14.1 % (11.6-14.8)
[2023-09-25 10:22] LABS: Alanine Aminotransferase 21 IU/L (<50); Albumin 4.2 g/dL (3.5-5.0); Albumin Globulin Ratio 1.6 (1.0-2.8); Alkaline Phosphatase 45 U/L (38-126); Aspartate Aminotransferase 23 IU/L (17-59); BUN Creatinine Ratio 18.8 (6-22); Bilirubin Total 0.6 mg/dL (0.2-1.3); Blood Urea Nitrogen 15 mg/dL (9-20); Calcium 9.3 mg/dL (8.4-10.2); Carbon Dioxide 27 mmol/L (22-32); Chloride 105 mmol/L (98-107); Cholesterol 190 mg/dL (140-199); Estimated Glomerular Filt Rate > 60 mL/min (>60); Globulin 2.7 g/dL (1.7-4.1); Glucose 85 mg/dL (70-100); HDL Cholesterol 49 mg/dL (40-60); HEMOLYSIS < 15 (0-50); LDL Cholesterol Calculated 119 mg/dL (<100); Potassium 4.2 mmol/L (3.4-5.1); Sodium 139 mmol/L (137-145); Total Protein 6.9 g/dL (6.3-8.2); Triglycerides 111 mg/dL (35-150)
[2023-09-25 10:46] LABS: TSH w/ Reflex to FT4 1.32 uIU/mL (0.47-4.68)
== END ==
PROVIDERS: Family Provider Family Medicine; PCP Family Medicine; Referring Provider Family Medicine; Visit Provider Family Medicine
DX: M25.562 Pain in left knee (principal); E78.2 Mixed hyperlipidemia
CPT/HCPCS: 36415; 80053; 80061; 84443; 85025

== ENCOUNTER → 2024-12-13 09:14 | Outpatient (CLI) | payer BC, SELFPAY ==
[2024-12-13 09:44] LABS: Add Manual Diff / Slide Review NO; Hematocrit 41.8 % (41-53); Hemoglobin 14.2 g/dL (13.5-17.5); Lymphocytes Absolute Auto 1400 /uL (1100-4500); Mean Corpuscular HGB Conc 34.0 % (30-36); Mean Corpuscular Hemoglobin 30.8 PG (26-34); Mean Corpuscular Volume 90.7 fL (80-100); Platelet Count 185 X10^3/uL (150-400)
[2024-12-13 10:01] LABS: Alanine Aminotransferase 27 IU/L (<50); Albumin 4.4 g/dL (3.5-5.0); Albumin Globulin Ratio 1.4 (1.0-2.8); Alkaline Phosphatase 49 U/L (38-126); Blood Urea Nitrogen 16 mg/dL (9-20); Calcium 9.6 mg/dL (8.4-10.2); Carbon Dioxide 28 mmol/L (22-32); Chloride 101 mmol/L (98-107); Cholesterol 222 mg/dL (140-199); Estimated Glomerular Filt Rate > 60 mL/min (>60); Globulin 3.1 g/dL (1.7-4.1); Glucose 102 mg/dL (70-99); HDL Cholesterol 51 mg/dL (40-60); HEMOLYSIS < 15 (0-50); Potassium 5.2 mmol/L (3.4-5.1); Sodium 138 mmol/L (137-145); Total Protein 7.5 g/dL (6.3-8.2); Triglycerides 197 mg/dL (35-150)
[2024-12-13 10:34] LABS: TSH w/ Reflex to FT4 1.99 uIU/mL (0.47-4.68)
== END ==
PROVIDERS: Family Provider Family Medicine; PCP Family Medicine; Referring Provider Family Medicine; Visit Provider Family Medicine
DX: E78.2 Mixed hyperlipidemia (principal); Z12.5 Encounter for screening for malignant neoplasm of prostate
CPT/HCPCS: 36415; 80053; 80061; 84443; 85025; G0103